=== PATIENT | male | born 1960 | race African-American/Black ===

== ENCOUNTER 2016-07-19 11:27 | Inpatient (IN) | payer OTHER ==
[2016-07-19 13:57] VITALS: BMI 21.4
[2016-07-19] MEDS ORDERED: P-EPHED 60MG/TRIPROLIDI 2.5MG TABLET PO PRN (16:56)
[2016-07-19] MEDS ORDERED: NICOTINE POLACRILEX 2 MG GUM BC PRN (16:56)
[2016-07-19] MEDS ORDERED: MAGNESIUM HYDROX 2400MG/30ML ORAL SUSPENSION 30 ML CUP PO PRN (16:56)
[2016-07-19] MEDS ORDERED: MENTHOL/PHENOL 1 EACH UD MM PRN (16:56)
[2016-07-19] MEDS ORDERED: ACETAMINOPHEN 325 MG TABLET (FP) PO PRN (16:56)
[2016-07-19] MEDS ORDERED: diphenhydrAMINE HCL 50 MG CAPSULE PO PRN (16:56)
[2016-07-19] MEDS ORDERED: LOPERAMIDE HCL 2 MG CAPSULE PO PRN (16:56)
[2016-07-19] MEDS ORDERED: MAGNESIUM CITRATE 300 ML BOTTLE PO PRN (16:56)
[2016-07-19] MEDS ORDERED: IBUPROFEN 400 MG TABLET (FP) PO PRN (16:56)
[2016-07-19] MEDS ORDERED: guaiFENesin/D-METHORPHAN HB 10 ML UNIT-DOSE CUPS PO PRN (16:56)
[2016-07-19] MEDS ORDERED: MAG HYDROX/AL HYDROX/SIMETH 30 ML UNIT-DOSE CUP PO PRN (16:56)
--- NOTE | 2016-07-19 16:56 | HP ---
COWS - Scale Resting Pulse: 0= [place] 80 or Below Sweatin=Flushed/Facial Moisture Restless Observation: 1= Difficult to Sit Still Pupil Size: 0= Normal to Room Light Bone or Joint Aches: 2= Severe Diffuse Aches Runny Nose/ Eye Tearin= Runny Nose/Eyes GI Upset > 30mins: 1= Stomach Cramp Tremor Observation: 2= Slight Tremor Visible Yawning Observation: 1= 1-2x During Session Anxiety or Irritability: 2=Irritable/Anxious Goose Flesh Skin: 0=Smooth Skin COWS Score: 13 Admission [facility] Chief Complaint: withdrawal sx Allergies/Adverse Reactions: Allergies Allergy/AdvReac Type Severity Reaction Status Date / Time No Known Allergies Allergy Verified 07/19/16 14:43 History of Present Illness: 56 years old male with long history of opioid nicotine dependence denies medical denies mental illness is admitted to detox Exam Limitations: No Limitations - Ebola screening Have you traveled outside of the country in the last 21 days: No Have you had contact with anyone from an Ebola affected area: No Have you been sick,other than usual withdrawal symptoms: No Do you have a fever: No - Review of Systems Constitutional: Chills, Loss of Appetite, Changes in sleep, Unintentional Wgt. Loss, Unexplained wgt Loss EENT: reports: No Symptoms Reported Respiratory: reports: No Symptoms reported Cardiac: reports: No Symptoms Reported GI: reports: Poor Appetite, Poor Fluid Intake, Indigestion, Abdominal cramping : reports: No Symptoms Reported Musculoskeletal: reports: Back Pain, Joint Pain, Muscle Pain, Neck Pain Integumentary: reports: No Symptoms Reported Neuro: reports: Tremors Endocrine: reports: No Symptoms Reported Hematology: reports: No Symptoms Reported Psychiatric: reports: Judgement Intact, Mood/Affect Appropiate, Orientated x3 Other Systems: Reviewed and Negative Patient History - Patient Medical History Hx Anemia: No Hx Asthma: No Hx Chronic Obstructive Pulmonary Disease (COPD): No Hx Cancer: No Hx Cardiac Disorders: No Hx Congestive Heart Failure: No Hx Hypertension: No Hx Hypercholesterolemia: No Hx Pacemaker: No HX Cerebrovascular Accident: No Hx Seizures: No Hx Dementia: No Hx Diabetes: No Hx Gastrointestinal Disorders: No Hx Liver Disease: No Hx Genitourinary Disorders: No Hx Sexually Transmitted Disorders: No Hx Renal Disease (ESRD): No Hx Thyroid Disease: No Hx Human Immunodeficiency Virus (HIV): No (NEGATIVE HX) Hx Hepatitis C: No Hx Depression: No Hx Suicide Attempt: No Hx Bipolar Disorder: No Hx Schizophrenia: No - Patient Surgical History Past Surgical History: Yes Hx Neurologic Surgery: No Hx Cataract Extraction: No Hx Cardiac Surgery: No Hx Lung Surgery: No Hx Breast Surgery: No Hx Breast Biopsy: No Hx Abdominal Surgery: No Hx Appendectomy: No Hx Cholecystectomy: No Hx Genitourinary Surgery: No Hx Orthopedic Surgery: Yes (right ankle in 1995) Anesthesia Reaction: No - PPD History Previous Implant?: Yes Documented Results: Negative w/proof Implanted On Prior R Admission?: Yes Date: 02/09/15 Results: 0 mm PPD to be Administered?: Yes - Smoking Cessation Smoking history: Current every day smoker Have you smoked in the past 12 months: Yes Aproximately how many cigarettes per day: 5 Cigars Per Day: 0 Hx Chewing Tobacco Use: No Initiated information on smoking cessation: Yes 'Breaking Loose' booklet given: 07/19/16 - Substance & Tx. History Hx Alcohol Use: No Hx Substance Use: Yes Substance Use Type: Opiates Hx Substance Use Treatment: Yes - Substances Abused Heroin Route: Inhalation Frequency: Daily Amount used: 3-4 bags Age of first use: 34 Date of Last Use: 07/18/16 Family Disease History - Family Disease History Family Disease History: Diabetes: Mother (HTN), Heart Disease: Mother, Other: Brother (DRUG ADDICTION) Admission Physical Exam BHS - Vital Signs Vital Signs: Vital Signs - 24 hr 07/19/16 13:56 Temperature 9702 F H Pulse Rate 61 Respiratory 20 Rate Blood Pressure 100/67 - Physical General Appearance: Yes: Appropriately Dressed, Mild Distress, Thin, Tremorous, Irritable, Sweating, Anxious HEENTM: Yes: Hearing grossly Normal, Normal ENT Inspection, Normocephalic, Normal Voice Respiratory: Yes: Chest Non-Tender, Lungs Clear, Normal Breath Sounds, No Respiratory Distress, No Accessory Muscle Use Neck: Yes: Supple, Trachea in good position Breast: Yes: Breasts Symetrical Cardiology: Yes: Regular Rhythm, S1, S2, Bradycardia Abdominal: Yes: Non Tender, Soft Genitourinary: Yes: Within Normal Limits Back: Yes: Normal Inspection Musculoskeletal: Yes: full range of Motion, Gait Steady, Back pain, Muscle Pain Extremities: Yes: Normal Inspection, Normal Range of Motion, Non-Tender, Tremors Neurological: Yes: Fully Oriented, Alert, Motor Strength 5/5, Normal Mood/Affect , Normal Response Integumentary: Yes: Warm Lymphatic: Yes: Within Normal Limits - Diagnostic (1) Nicotine dependence Current Visit: Yes Status: Acute Qualifiers: Nicotine product type: cigarettes Substance use status: in withdrawal Qualified Code(s): F17.213 - Nicotine dependence, cigarettes, with withdrawal (2) Opioid dependence with withdrawal Current Visit: Yes Status: Acute (3) Weight loss Current Visit: Yes Status: Acute Cleared for Admission [facility] - Detox or Rehab [facility] Level of Care: Medically Managed Detox Regimen/Protocol: Methadone [facility] Breath Alcohol Content Breath Alcohol Content: 0 Urine Drug Screen - Results Drug Screen Negative: No Urine Drug Screen Results: OPI-Opiates
[2016-07-19] MEDS ORDERED: METHADONE HCL 10 MG TABLET (FOR DETOX USE ONLY) PO ONE ×2 (17:15→23:00)
[2016-07-19] MEDS: diazePAM 5 MG TABLET PO PRN ×2 (17:41→23:06)
[2016-07-19 21:15] LABS: URINE APPEARANCE CLEAR; URINE BILIRUBIN NEGATIVE (NEGATIVE); URINE BLOOD NEGATIVE (NEGATIVE); URINE COLOR YELLOW; URINE GLUCOSE (UA) NEGATIVE (NEGATIVE); URINE KETONE NEGATIVE (NEGATIVE); URINE LEUK ESTERASE NEGATIVE (NEGATIVE); URINE NITRITE NEGATIVE (NEGATIVE); URINE PROTEIN NEGATIVE (NEGATIVE); URINE UROBILINOGEN NEGATIVE E.U./dl (0.2-1.0)
[2016-07-19] MEDS: THIAMINE HCL 100 MG TABLET (FP) PO SCH (23:03)
[2016-07-20] MEDS: diazePAM 5 MG TABLET PO PRN ×3 (06:08→22:23)
[2016-07-20 09:57] LABS: MCH 29.2 pg (25.7-33.7); MCHC 33.1 g/dl (32.0-35.9); MEAN CELL VOLUME 88.4 fl (80-96); MEAN PLT VOLUME 8.7 fl (7.5-11.1); PLATELET COUNT 208 K/MM3 (134-434); WHITE BLOOD COUNT 2.3 K/mm3 (4.0-10.0)
[2016-07-20] MEDS ORDERED: METHADONE HCL 10 MG TABLET (FOR DETOX USE ONLY) PO ONE (10:00)
[2016-07-20] MEDS: PRENATAL VITAMINS W/ FOLIC ACID TABLET (FP) PO SCH (10:24)
[2016-07-20] MEDS: NICOTINE 14 MG/24 HOURS TOPICAL PATCH TD SCH (10:24)
[2016-07-20 11:38] LABS: ANION GAP 7 (8-16); CALCIUM 9.1 mg/dL (8.5-10.1); CO2 33 mmol/L (21-32); COCKROFT - GAULT 104.51; CREATININE 0.8 mg/dL (0.7-1.3); GLUCOSE,RANDOM 66 mg/dL (74-106)
[2016-07-20 11:39] LABS: ALK PHOS 65 U/L (45-117); BILIRUBIN,TOTAL 0.8 mg/dL (0.2-1.0); SGOT/AST 24 U/L (15-37); SGPT/ALT 22 U/L (12-78)
--- NOTE | 2016-07-20 11:45 | EKG ---
Test Reason : Blood Pressure : / mmHG Vent. Rate : 051 BPM Atrial Rate : 051 BPM P-R Int : 216 ms QRS Dur : 094 ms QT Int : 470 ms P-R-T Axes : 052 -29 025 degrees QTc Int : 433 ms SINUS BRADYCARDIA WITH 1ST DEGREE A-V BLOCK OTHERWISE NORMAL ECG NO PREVIOUS ECGS AVAILABLE Confirmed by GLORIA GIL, NORBERTO ([id number]) on 07/20/2016 11:45:08 AM Referred By: Aquilino Manzo Confirmed By:NORBERTO CASTRO MD
--- NOTE | 2016-07-20 12:24 | PN ---
BHS COWS - Scale Resting Pulse: 0= [place] 80 or Below Sweatin=Flushed/Facial Moisture Restless Observation: 1= Difficult to Sit Still Pupil Size: 0= Normal to Room Light Bone or Joint Aches: 1= Mild Discomfort Runny Nose/ Eye Tearin= Runny Nose/Eyes GI Upset > 30mins: 2= Nausea/Diarrhea Tremor Observation of Outstretched Hands: 2= Slight Tremor Visible Yawning Observation: 1= 1-2x During Session Anxiety or Irritability: 2=Irritable/Anxious Goose Flesh Skin: 0=Smooth Skin COWS Score: 13 BHS Progress Note (SOAP) Subjective: Anxiety,tremors,sweating,interrupted sleep,restless Objective: 07/20/16 12:23 Vital Signs - 8 hr 07/20/16 07/20/16 06:24 10:00 Temperature 97.7 F Pulse Rate 62 67 Respiratory 18 18 Rate Blood Pressure 118/81 105/72 Laboratory Results - last 24 hr 07/19/16 07/20/16 07/20/16 20:52 06:00 06:00 WBC 2.3 L RBC 4.25 Hgb 12.4 Hct 37.5 MCV 88.4 MCHC 33.1 RDW 13.0 Plt Count 208 MPV 8.7 Sodium 141 Potassium 4.2 Chloride 101 Carbon Dioxide 33 H D Anion Gap 7 L BUN 17 Creatinine 0.8 Creat Clearance w eGFR > 60 Random Glucose 66 L D Calcium 9.1 Total Bilirubin 0.8 D AST 24 D ALT 22 Alkaline Phosphatase 65 Total Protein 7.0 Albumin 4.0 Urine Color Yellow Urine Appearance Clear Urine pH 6.0 Ur Specific [place] 1.020 Urine Protein Negative Urine Glucose (UA) Negative Urine Ketones Negative Urine Blood Negative Urine Nitrite Negative Urine Bilirubin Negative Urine Urobilinogen Negative Ur Leukocyte Esterase Negative RPR Titer T.pallidum Ab (A) 07/20/16 06:00 WBC RBC Hgb Hct MCV MCHC RDW Plt Count MPV Sodium Potassium Chloride Carbon Dioxide Anion Gap BUN Creatinine Creat Clearance w eGFR Random Glucose Calcium Total Bilirubin AST ALT Alkaline Phosphatase Total Protein Albumin Urine Color Urine Appearance Urine pH Ur Specific [place] Urine Protein Urine Glucose (UA) Urine Ketones Urine Blood Urine Nitrite Urine Bilirubin Urine Urobilinogen Ur Leukocyte Esterase RPR Titer Reactive 1:1 H T.pallidum Ab (A) Previously reactive labs noted Assessment: 07/20/16 12:23 Withdrawal sx. Plan: Continue detox
[2016-07-20] MEDS: THIAMINE HCL 100 MG TABLET (FP) PO SCH (22:21)
[2016-07-21] MEDS: diazePAM 5 MG TABLET PO PRN ×4 (05:28→23:11)
[2016-07-21] MEDS ORDERED: METHADONE HCL 5 MG TABLET (FOR DETOX USE ONLY) PO ONE (10:00)
[2016-07-21] MEDS: PRENATAL VITAMINS W/ FOLIC ACID TABLET (FP) PO SCH (10:27)
[2016-07-21] MEDS: NICOTINE 14 MG/24 HOURS TOPICAL PATCH TD SCH (10:27)
--- NOTE | 2016-07-21 11:45 | PN ---
[facility] CIWA - CIWA Score Nausea/Vomitin-No Nausea/No Vomiting Muscle Tremors: 4-Moderate,w/Arms Extend Anxiety: 4-Mod. Anxious/Guarded Agitation: 4-Moderately Restless Paroxysmal Sweats: 1-Minimal Palms Moist Orientation: 0-Oriented Tacttile Disturbances: 3-Moderate Itch/Numb/Burn Auditory Disturbances: 0-None Visual Disturbances: 0-None Headache: 0-None Present CIWA-Ar Total Score: 16 BHS Progress Note (SOAP) Subjective: ANXIETY,IRRITABILITY,FATIGUE. Objective: 07/21/16 11:43 Vital Signs Temperature 98.2 F 07/21/16 09:37 Pulse Rate 73 07/21/16 09:37 Respiratory Rate 18 07/21/16 09:37 Blood Pressure 114/76 07/21/16 09:37 O2 Sat by Pulse Oximetry (%) Laboratory Last Values WBC 2.3 K/mm3 (4.0-10.0) L 07/20/16 06:00 RBC 4.25 M/mm3 (4.00-5.60) 07/20/16 06:00 Hgb 12.4 GM/dL (11.7-16.9) 07/20/16 06:00 Hct 37.5 % (35.4-49) 07/20/16 06:00 MCV 88.4 fl (80-96) 07/20/16 06:00 MCHC 33.1 g/dl (32.0-35.9) 07/20/16 06:00 RDW 13.0 % (11.9-15.9) 07/20/16 06:00 Plt Count 208 K/MM3 (134-434) 07/20/16 06:00 MPV 8.7 fl (7.5-11.1) 07/20/16 06:00 Sodium 141 mmol/L (136-145) 07/20/16 06:00 Potassium 4.2 mmol/L (3.5-5.1) 07/20/16 06:00 Chloride 101 mmol/L (98-107) 07/20/16 06:00 Carbon Dioxide 33 mmol/L (21-32) H D 07/20/16 06:00 Anion Gap 7 (8-16) L 07/20/16 06:00 BUN 17 mg/dL (7-18) 07/20/16 06:00 Creatinine 0.8 mg/dL (0.7-1.3) 07/20/16 06:00 Creat Clearance w eGFR > 60 (>60) 07/20/16 06:00 Random Glucose 66 mg/dL (74-106) L D 07/20/16 06:00 Calcium 9.1 mg/dL (8.5-10.1) 07/20/16 06:00 Total Bilirubin 0.8 mg/dL (0.2-1.0) D 07/20/16 06:00 AST 24 U/L (15-37) D 07/20/16 06:00 ALT 22 U/L (12-78) 07/20/16 06:00 Alkaline Phosphatase 65 U/L (45-117) 07/20/16 06:00 Total Protein 7.0 g/dl (6.4-8.2) 07/20/16 06:00 Albumin 4.0 g/dl (3.4-5.0) 07/20/16 06:00 Urine Color Yellow 07/19/16 20:52 Urine Appearance Clear 07/19/16 20:52 Urine pH 6.0 (5.0-8.0) 07/19/16 20:52 Ur Specific [place] 1.020 (1.005-1.025) 07/19/16 20:52 Urine Protein Negative (NEGATIVE) 07/19/16 20:52 Urine Glucose (UA) Negative (NEGATIVE) 07/19/16 20:52 Urine Ketones Negative (NEGATIVE) 07/19/16 20:52 Urine Blood Negative (NEGATIVE) 07/19/16 20:52 Urine Nitrite Negative (NEGATIVE) 07/19/16 20:52 Urine Bilirubin Negative (NEGATIVE) 07/19/16 20:52 Urine Urobilinogen Negative E.U./dl (0.2-1.0) 07/19/16 20:52 Ur Leukocyte Esterase Negative (NEGATIVE) 07/19/16 20:52 RPR Titer Reactive 1:1 (NONREACTIVE) H 07/20/16 06:00 T.pallidum Ab (MHA) Previously reactive (NONREACTIVE) 07/20/16 06:00 LABS NOTED. Assessment: 07/21/16 11:44 WITHDRAWAL SX Plan: CONTINUE DETOX
[2016-07-21] MEDS: THIAMINE HCL 100 MG TABLET (FP) PO SCH (22:16)
[2016-07-22] MEDS: diazePAM 5 MG TABLET PO PRN ×3 (05:26→16:40)
[2016-07-22] MEDS ORDERED: METHADONE HCL 10 MG TABLET (FOR DETOX USE ONLY) PO ONE (10:00)
[2016-07-22] MEDS ORDERED: METHADONE HCL 5 MG TABLET (FOR DETOX USE ONLY) PO ONE (10:00)
[2016-07-22] MEDS: NICOTINE 14 MG/24 HOURS TOPICAL PATCH TD SCH (10:31)
[2016-07-22] MEDS: PRENATAL VITAMINS W/ FOLIC ACID TABLET (FP) PO SCH (10:31)
--- NOTE | 2016-07-22 11:06 | PN ---
BHS Progress Note (SOAP) Subjective: IRRITABILITY,AGITATIONS,FATIGUE. Objective: 07/22/16 11:05 Vital Signs Temperature 97.4 F L 07/22/16 09:15 Pulse Rate 71 07/22/16 09:15 Respiratory Rate 18 07/22/16 09:15 Blood Pressure 117/76 07/22/16 09:15 O2 Sat by Pulse Oximetry (%) Assessment: 07/22/16 11:05 WITHDRAWAL SX Plan: CONTINUE DETOX
[2016-07-22] MEDS: THIAMINE HCL 100 MG TABLET (FP) PO SCH (23:05)
[2016-07-23] MEDS ORDERED: METHADONE HCL 5 MG TABLET (FOR DETOX USE ONLY) PO ONE (06:00)
[2016-07-23 06:27] VITALS: BP 112/75; PULSE 66; TEMP 97.3
[2016-07-23] MEDS ORDERED: METHADONE HCL 10 MG TABLET (FOR DETOX USE ONLY) PO ONE (10:00)
--- NOTE | 2016-07-23 10:52 | DS ---
[facility] Detox Discharge Summary Admission Date: 07/19/16 Discharge Date: 07/23/16 - History Present History: Opioid Dependence Additional Comments: DETOX COMPLETED. PT DISCHARGED EARLIER TODAY. Pertinent Past History: WEIGHT LOSS - Physical Exam Results Vital Signs: Vital Signs Temperature 97.3 F L 07/23/16 06:27 Pulse Rate 66 07/23/16 06:27 Respiratory Rate 18 07/23/16 06:27 Blood Pressure 112/75 07/23/16 06:27 O2 Sat by Pulse Oximetry (%) Pertinent Admission Physical Exam Findings: WITHDRAWAL SX Laboratory Last Values WBC 2.3 K/mm3 (4.0-10.0) L 07/20/16 06:00 RBC 4.25 M/mm3 (4.00-5.60) 07/20/16 06:00 Hgb 12.4 GM/dL (11.7-16.9) 07/20/16 06:00 Hct 37.5 % (35.4-49) 07/20/16 06:00 MCV 88.4 fl (80-96) 07/20/16 06:00 MCHC 33.1 g/dl (32.0-35.9) 07/20/16 06:00 RDW 13.0 % (11.9-15.9) 07/20/16 06:00 Plt Count 208 K/MM3 (134-434) 07/20/16 06:00 MPV 8.7 fl (7.5-11.1) 07/20/16 06:00 Sodium 141 mmol/L (136-145) 07/20/16 06:00 Potassium 4.2 mmol/L (3.5-5.1) 07/20/16 06:00 Chloride 101 mmol/L (98-107) 07/20/16 06:00 Carbon Dioxide 33 mmol/L (21-32) H D 07/20/16 06:00 Anion Gap 7 (8-16) L 07/20/16 06:00 BUN 17 mg/dL (7-18) 07/20/16 06:00 Creatinine 0.8 mg/dL (0.7-1.3) 07/20/16 06:00 Creat Clearance w eGFR > 60 (>60) 07/20/16 06:00 Random Glucose 66 mg/dL (74-106) L D 07/20/16 06:00 Calcium 9.1 mg/dL (8.5-10.1) 07/20/16 06:00 Total Bilirubin 0.8 mg/dL (0.2-1.0) D 07/20/16 06:00 AST 24 U/L (15-37) D 07/20/16 06:00 ALT 22 U/L (12-78) 07/20/16 06:00 Alkaline Phosphatase 65 U/L (45-117) 07/20/16 06:00 Total Protein 7.0 g/dl (6.4-8.2) 07/20/16 06:00 Albumin 4.0 g/dl (3.4-5.0) 07/20/16 06:00 Urine Color Yellow 07/19/16 20:52 Urine Appearance Clear 07/19/16 20:52 Urine pH 6.0 (5.0-8.0) 07/19/16 20:52 Ur Specific [place] 1.020 (1.005-1.025) 07/19/16 20:52 Urine Protein Negative (NEGATIVE) 07/19/16 20:52 Urine Glucose (UA) Negative (NEGATIVE) 07/19/16 20:52 Urine Ketones Negative (NEGATIVE) 07/19/16 20:52 Urine Blood Negative (NEGATIVE) 07/19/16 20:52 Urine Nitrite Negative (NEGATIVE) 07/19/16 20:52 Urine Bilirubin Negative (NEGATIVE) 07/19/16 20:52 Urine Urobilinogen Negative E.U./dl (0.2-1.0) 07/19/16 20:52 Ur Leukocyte Esterase Negative (NEGATIVE) 07/19/16 20:52 RPR Titer Reactive 1:1 (NONREACTIVE) H 07/20/16 06:00 T.pallidum Ab (MHA) Previously reactive (NONREACTIVE) 07/20/16 06:00 - Treatment Hospital Course: Detox Protocol Followed, Detoxed Safely, Responded well, Discharged Condition Good - Medication Discharge Medications: Ambulatory Orders NK [No Known Home Medication] 10/23/13 - Diagnosis (1) Nicotine dependence Status: Acute Qualifiers: Nicotine product type: cigarettes Substance use status: in withdrawal Qualified Code(s): F17.213 - Nicotine dependence, cigarettes, with withdrawal (2) Opioid dependence with withdrawal Status: Acute (3) Weight loss Status: Acute - AMA Did Patient Leave Against Medical Advice: No
[2016-07-24] MEDS ORDERED: METHADONE HCL 5 MG TABLET (FOR DETOX USE ONLY) PO ONE (06:00)
== END 2016-07-23 07:15 | disposition home or self-care (01) | DRG 773 ==
LOC: YASAS 11:27 → Y3N 15:29
PROVIDERS: ADMIT Internal Medicine; ATTEND Internal Medicine
PROC: HZ2ZZZZ Detoxification Services for Substance Abuse Treatment (ICD-10-PCS; principal; 2016-07-19)
DX: F11.23 Opioid dependence with withdrawal (principal); F17.213 Nicotine dependence, cigarettes, with withdrawal; R00.1 Bradycardia, unspecified; Z87.898 Personal history of other specified conditions
CPT/HCPCS: 36415; 80053; 81003; 85027; 86593; 86780; 93005; 93010

== ENCOUNTER 2017-02-24 08:13 | Inpatient (IN) | payer OTHER ==
[2017-02-24 09:51] VITALS: BMI 21.5
--- NOTE | 2017-02-24 11:58 | HP ---
COWS - Scale Resting Pulse: 0= [place] 80 or Below Sweatin= Chills/Flushing Restless Observation: 3= Extraneous Movement Pupil Size: 0= Normal to Room Light Bone or Joint Aches: 4=Acute Joint/Muscle Pain Runny Nose/ Eye Tearin= Nasal Congestion GI Upset > 30mins: 1= Stomach Cramp Tremor Observation: 2= Slight Tremor Visible Yawning Observation: 1= 1-2x During Session Anxiety or Irritability: 2=Irritable/Anxious Goose Flesh Skin: 0=Smooth Skin COWS Score: 15 Admission ROS S - HPI Chief Complaint: WITHDRAWAL SX FROM HEROIN Allergies/Adverse Reactions: Allergies Allergy/AdvReac Type Severity Reaction Status Date / Time No Known Allergies Allergy Verified 02/24/17 09:58 Exam Limitations: No Limitations - Ebola screening Have you traveled outside of the country in the last 21 days: No (N) Have you had contact with anyone from an Ebola affected area: No Have you been sick,other than usual withdrawal symptoms: No Do you have a fever: No - Review of Systems Constitutional: Chills, Loss of Appetite, Night Sweats, Changes in sleep, Unintentional Wgt. Loss EENT: reports: Blurred Vision ("I LOSSED MY GLASSES".), Tearing, Nose Congestion , Dental Problems (UPPER DENTURES) Respiratory: reports: No Symptoms reported Cardiac: reports: Lightheadedness GI: reports: Constipated, Diarrhea, Nausea, Vomiting : reports: No Symptoms Reported Musculoskeletal: reports: Back Pain, Joint Pain, Muscle Pain Integumentary: reports: No Symptoms Reported Neuro: reports: Unsteady Gait, Dizziness Endocrine: reports: No Symptoms Reported Hematology: reports: No Symptoms Reported Psychiatric: reports: Orientated x3, Anxious, Depressed Other Systems: Reviewed and Negative Patient History - Patient Medical History Hx Anemia: No Hx Asthma: No Hx Chronic Obstructive Pulmonary Disease (COPD): No Hx Cancer: No Hx Cardiac Disorders: No Hx Congestive Heart Failure: No Hx Hypertension: No Hx Hypercholesterolemia: No Hx Pacemaker: No HX Cerebrovascular Accident: No Hx Seizures: No Hx Dementia: No Hx Diabetes: No Hx Gastrointestinal Disorders: No Hx Liver Disease: No Hx Genitourinary Disorders: No Hx Sexually Transmitted Disorders: No Hx Renal Disease (ESRD): No Hx Thyroid Disease: No Hx Human Immunodeficiency Virus (HIV): No (NEGATIVE HX) Hx Hepatitis C: No Hx Depression: Yes (NO CURRENT MED) Hx Suicide Attempt: No (DENIES) Hx Bipolar Disorder: No Hx Schizophrenia: No - Patient Surgical History Past Surgical History: Yes Hx Neurologic Surgery: No Hx Cataract Extraction: No Hx Cardiac Surgery: No Hx Lung Surgery: No Hx Breast Surgery: No Hx Breast Biopsy: No Hx Abdominal Surgery: No Hx Appendectomy: No Hx Cholecystectomy: No Hx Genitourinary Surgery: No Hx Orthopedic Surgery: Yes (right ankle in 1995) Anesthesia Reaction: No - PPD History Previous Implant?: Yes Documented Results: Negative w/proof Implanted On Prior [facility] Admission?: Yes Date: 07/21/16 Results: 0 mm PPD to be Administered?: No - Reproductive History Patient is a Female of Child Bearing Age (11 -55 yrs old): No (MALE) - Smoking Cessation Smoking history: Current every day smoker Have you smoked in the past 12 months: Yes Aproximately how many cigarettes per day: 7 Cigars Per Day: 0 Hx Chewing Tobacco Use: No Initiated information on smoking cessation: Yes 'Breaking Loose' booklet given: 02/24/17 - Substance & Tx. History Hx Alcohol Use: No (DENIES) Hx Substance Use: Yes (HEROIN) Substance Use Type: Heroin Hx Substance Use Treatment: Yes (LAST [place] AT [facility] DETOX) - Substances Abused Heroin Route: Inhalation Frequency: Daily Amount used: 7-8 bags Age of first use: 35 Date of Last Use: 02/24/17 Family Disease History - Family Disease History Family Disease History: Diabetes: Mother (HTN), Heart Disease: Mother, Other: Brother (DRUG ADDICTION) Admission Physical Exam S - Vital Signs Vital Signs: Vital Signs - 24 hr 02/24/17 09:48 Temperature 97 F L Pulse Rate 62 Respiratory 18 Rate Blood Pressure 107/71 - Physical General Appearance: Yes: Moderate Distress, Irritable, Anxious HEENTM: Yes: EOMI, Normocephalic, [place], Pharynx Normal Respiratory: Yes: Chest Non-Tender, Lungs Clear, Normal Breath Sounds, No Respiratory Distress Neck: Yes: No masses,lesions,Nodules, Supple, Trachea in good position Cardiology: Yes: Regular Rhythm, Regular Rate, S1, S2 Abdominal: Yes: Normal Bowel Sounds, Non Tender, Flat Genitourinary: Yes: Other Back: Yes: Within Normal Limits Musculoskeletal: Yes: full range of Motion, Gait Steady Extremities: Yes: Normal Range of Motion, Non-Tender Neurological: Yes: executive kitchen manager II-XII NML intact, Fully Oriented, Alert, Motor Strength 5/5 Integumentary: Yes: Dry, Warm Lymphatic: Yes: Within Normal Limits - Diagnostic (1) Nicotine dependence Current Visit: Yes Status: Acute Qualifiers: Nicotine product type: cigarettes Substance use status: in withdrawal Qualified Code(s): F17.213 - Nicotine dependence, cigarettes, with withdrawal (2) Opioid dependence with withdrawal Current Visit: Yes Status: Acute (3) Weight loss Current Visit: Yes Status: Acute Cleared for Admission [facility] - Detox or Rehab [facility] Level of Care: Medically Managed Detox Regimen/Protocol: Methadone [facility] Breath Alcohol Content Breath Alcohol Content: 0 Urine Drug Screen - Results Drug Screen Negative: No Urine Drug Screen Results: OPI-Opiates, OXY-Oxycodone
[2017-02-24] MEDS ORDERED: guaiFENesin/D-METHORPHAN HB 10 ML UNIT-DOSE CUPS PO PRN (12:02)
[2017-02-24] MEDS ORDERED: MAG HYDROX/AL HYDROX/SIMETH 30 ML UNIT-DOSE CUP PO PRN (12:02)
[2017-02-24] MEDS ORDERED: ACETAMINOPHEN 325 MG TABLET (FP) PO PRN (12:02)
[2017-02-24] MEDS ORDERED: IBUPROFEN 400 MG TABLET (FP) PO PRN (12:02)
[2017-02-24] MEDS ORDERED: P-EPHED 60MG/TRIPROLIDI 2.5MG TABLET PO PRN (12:02)
[2017-02-24] MEDS ORDERED: MENTHOL/PHENOL 1 EACH UD MM PRN (12:02)
[2017-02-24] MEDS ORDERED: NICOTINE POLACRILEX 2 MG GUM BUC PRN (12:02)
[2017-02-24] MEDS ORDERED: MAGNESIUM HYDROX 2400MG/30ML ORAL SUSPENSION 30 ML CUP PO PRN (12:02)
[2017-02-24] MEDS ORDERED: LOPERAMIDE HCL 2 MG CAPSULE PO PRN (12:02)
[2017-02-24] MEDS ORDERED: MAGNESIUM CITRATE 300 ML BOTTLE PO PRN (12:02)
[2017-02-24] MEDS ORDERED: METHADONE HCL 10 MG TABLET (FOR DETOX USE ONLY) PO ONE ×2 (12:22→23:00)
[2017-02-24 13:51] LABS: HEMATOCRIT 39.2 % (35.4-49); HEMOGLOBIN 12.6 GM/dL (11.7-16.9); MCH 28.6 pg (25.7-33.7); MEAN CELL VOLUME 89.4 fl (80-96); MEAN PLT VOLUME 8.7 fl (7.5-11.1); PLATELET COUNT 283 K/MM3 (134-434); RBC 4.39 M/mm3 (4.00-5.60); RDW 14.3 % (11.9-15.9); WHITE BLOOD COUNT 2.7 K/mm3 (4.0-10.0)
[2017-02-24 14:10] LABS: CHLORIDE 104 mmol/L (98-107); POTASSIUM 4.4 mmol/L (3.5-5.1); SODIUM 139 mmol/L (136-145)
[2017-02-24 14:15] LABS: ALBUMIN 3.8 g/dl (3.4-5.0); ALK PHOS 73 U/L (45-117); ANION GAP 4 (8-16); BILIRUBIN,TOTAL 0.7 mg/dL (0.2-1.0); BLOOD UREA NITROGEN 13 mg/dL (7-18); CALCIUM 8.7 mg/dL (8.5-10.1); CO2 31 mmol/L (21-32); CREATININE 0.7 mg/dL (0.7-1.3); GLUCOSE,RANDOM 125 mg/dL (74-106); SGOT/AST 12 U/L (15-37); SGPT/ALT 21 U/L (12-78); TOT PROT 6.8 g/dl (6.4-8.2)
[2017-02-24] MEDS ORDERED: METHADONE HCL 10 MG TABLET (FOR DETOX USE ONLY) ONE (14:26)
[2017-02-24] MEDS: NICOTINE 14 MG/24 HOURS TOPICAL PATCH TD SCH (14:34)
[2017-02-24] MEDS: diazePAM 5 MG TABLET PO PRN ×2 (14:34→22:13)
[2017-02-24 15:25] LABS: RPR REACTIVE 1:1 (NONREACTIVE)
[2017-02-24 15:26] LABS: TREPONEMA ANTIBODY PREVIOUSLY REACTIVE (NONREACTIVE)
--- NOTE | 2017-02-24 16:55 | CONSULT ---
[facility] Psychiatric Consult - Data Date of interview: 02/24/17 Admission source: [facility] Identifying data: Pt. is a 57 year old male, single, father of a 20 year old female, unemployed and currently homeless. This is [facility] Pt. admitted to for heroin dependence. Substance Abuse History: Following information confirmed with Mr. Tucker: Smoking Cessation. Smoking history: Current every day smoker. Have you smoked in the past 12 months: Yes. Aproximately how many cigarettes per day: 7. - Substance & Tx. History. Hx Alcohol Use: No (DENIES). Hx Substance Use: Yes ( HEROIN). Substance Use Type: Heroin. Hx Substance Use Treatment: Yes (LAST [place] AT [facility] DETOX). Heroin- Route: Inhalation Frequency: Daily. Amount used: 7-8 bags Age of first use: 35. Date of Last Use: 02/24/17 Medical History: Right ankle surgery in 1995. Psychiatric History: Pt. reports seeing a psychiatrist several times per week while in rehab for 8 months in 2004. Pt. stated he was prescribed paxil, wellbutrin, risperdal and trazodone during his tenure in rehab. States he took medications for 3-4 months then stopped because they were not working. Pt. currently requesting trazodone for insomnia. Stated he remembered the trazodone improving his sleep. Pt. denies h/o psychiatric hospitalizations and h/o suicide attempts. Pt. denies suicidal and homicidal ideation. Physical/Sexual Abuse/Trauma History: Denies. Additional Comment: Urine Drug Screen Results: OPI-Opiates, OXY-Oxycodone Mental Status Exam - Mental Status Exam Alert and Oriented to: Time, Place, Person Cognitive Function: Good Patient Appearance: Well Groomed Mood: Sad Affect: Mood Congruent Patient Behavior: Appropriate, Cooperative Speech Pattern: Clear, Appropriate Voice Loudness: Normal Thought Process: Goal Oriented Thought Disorder: Not Present Hallucinations: Denies Suicidal Ideation: Denies Homicidal Ideation: Denies Insight/Judgement: Poor Sleep: Poorly Appetite: Fair Muscle strength/Tone: Normal Gait/Station: Normal Psychiatric Findings - Problem List ([place] 1, 2,3) (1) Opioid dependence with withdrawal Current Visit: Yes Status: Acute (2) Nicotine dependence Current Visit: Yes Status: Chronic QualifierTitle: Nicotine product type: cigarettes Substance use status: in withdrawal Qualified Code(s): F17.213 - Nicotine dependence, cigarettes, with withdrawal (3) Insomnia Current Visit: Yes Status: Acute (4) Substance induced mood disorder Current Visit: Yes Status: Suspected - Initial Treatment Plan Initial Treatment Plan: Psychoeducation provided. Detoxification in progress. Trazodone 50mg qhs ordered for insomnia. Benefits and side effects (Priapism) discussed. Verbal consent given. Pt. reports favorable effect from taking trazodone in the past. Will continue to monitor.
[2017-02-24 20:58] LABS: URINE APPEARANCE CLEAR; URINE BILIRUBIN NEGATIVE (NEGATIVE); URINE BLOOD 1+ (NEGATIVE); URINE COLOR YELLOW; URINE GLUCOSE (UA) NEGATIVE (NEGATIVE); URINE KETONE NEGATIVE (NEGATIVE); URINE LEUK ESTERASE NEGATIVE (NEGATIVE); URINE NITRITE NEGATIVE (NEGATIVE); URINE PROTEIN NEGATIVE (NEGATIVE); URINE UROBILINOGEN NEGATIVE mg/dL (0.2-1.0)
[2017-02-24 21:39] LABS: URINE MUCUS RARE
[2017-02-24] MEDS: traZODone HCL 50 MG TABLET (FP) PO SCH (22:13)
[2017-02-24] MEDS: THIAMINE HCL 100 MG TABLET (FP) PO SCH (22:13)
--- NOTE | 2017-02-25 09:51 | EKG ---
Test Reason : Blood Pressure : / mmHG Vent. Rate : 058 BPM Atrial Rate : 058 BPM P-R Int : 222 ms QRS Dur : 090 ms QT Int : 466 ms P-R-T Axes : 050 -32 045 degrees QTc Int : 457 ms SINUS BRADYCARDIA WITH 1ST DEGREE A-V BLOCK LEFT AXIS DEVIATION ABNORMAL ECG WHEN COMPARED WITH ECG OF 24-FEB-2017 15:44, NO SIGNIFICANT CHANGE WAS FOUND Confirmed by ALTON TERRAZAS MD ([id number]) on 02/25/2017 9:50:52 AM Referred By: Confirmed By:ALTON TERRAZAS MD
--- NOTE | 2017-02-25 09:53 | EKG ---
Test Reason : Blood Pressure : / mmHG Vent. Rate : 053 BPM Atrial Rate : 053 BPM P-R Int : 206 ms QRS Dur : 092 ms QT Int : 456 ms P-R-T Axes : 038 -25 035 degrees QTc Int : 427 ms SINUS BRADYCARDIA OTHERWISE NORMAL ECG WHEN COMPARED WITH ECG OF 19-JUL-2016 16:44, NO SIGNIFICANT CHANGE WAS FOUND Confirmed by ALTON TERRAZAS MD ([id number]) on 02/25/2017 9:52:46 AM Referred By: Confirmed By:ALTON TERRAZAS MD
[2017-02-25] MEDS ORDERED: METHADONE HCL 10 MG TABLET (FOR DETOX USE ONLY) PO ONE (10:00)
[2017-02-25] MEDS: PRENATAL VITAMINS W/ FOLIC ACID TABLET (FP) PO SCH (10:10)
[2017-02-25] MEDS: NICOTINE 14 MG/24 HOURS TOPICAL PATCH TD SCH (10:10)
[2017-02-25] MEDS: diazePAM 5 MG TABLET PO PRN ×3 (10:10→23:23)
--- NOTE | 2017-02-25 11:52 | PN ---
BHS COWS - Scale Resting Pulse: 0= [place] 80 or Below Sweatin= Chills/Flushing Restless Observation: 1= Difficult to Sit Still Pupil Size: 0= Normal to Room Light Bone or Joint Aches: 2= Severe Diffuse Aches Runny Nose/ Eye Tearin= None GI Upset > 30mins: 0= None Tremor Observation of Outstretched Hands: 2= Slight Tremor Visible Yawning Observation: 1= 1-2x During Session Anxiety or Irritability: 2=Irritable/Anxious Goose Flesh Skin: 3=Piloerection COWS Score: 12 BHS Progress Note (SOAP) Subjective: Sweating, Tremors, Body Aches. Objective: PT. A & O X 3, OBSERVED AMBULATING ON UNIT. NO ACUTE DISTRESS. 02/25/17 11:53 Vital Signs Temperature 98.2 F 02/25/17 09:20 Pulse Rate 70 02/25/17 09:20 Respiratory Rate 18 02/25/17 09:20 Blood Pressure 110/70 02/25/17 09:20 O2 Sat by Pulse Oximetry (%) Laboratory Tests 02/24/17 02/24/17 02/24/17 12:15 12:15 12:15 WBC 2.7 L RBC 4.39 Hgb 12.6 Hct 39.2 MCV 89.4 MCH 28.6 MCHC 32.0 RDW 14.3 Plt Count 283 D MPV 8.7 Sodium 139 Potassium 4.4 Chloride 104 Carbon Dioxide 31 Anion Gap 4 L BUN 13 D Creatinine 0.7 Creat Clearance w eGFR > 60 Random Glucose 125 H D Calcium 8.7 Total Bilirubin 0.7 AST 12 L D ALT 21 Alkaline Phosphatase 73 Total Protein 6.8 Albumin 3.8 Urine Color Urine Appearance Urine pH Ur Specific [place] Urine Protein Urine Glucose (UA) Urine Ketones Urine Blood Urine Nitrite Urine Bilirubin Urine Urobilinogen Ur Leukocyte Esterase Urine WBC (Auto) Urine RBC (Auto) Urine Mucus RPR Titer Reactive 1:1 H T.pallidum Ab (A) Previously reactive 02/24/17 18:30 WBC RBC Hgb Hct MCV MCH MCHC RDW Plt Count MPV Sodium Potassium Chloride Carbon Dioxide Anion Gap BUN Creatinine Creat Clearance w eGFR Random Glucose Calcium Total Bilirubin AST ALT Alkaline Phosphatase Total Protein Albumin Urine Color Yellow Urine Appearance Clear Urine pH 6.0 Ur Specific [place] 1.020 Urine Protein Negative Urine Glucose (UA) Negative Urine Ketones Negative Urine Blood 1+ H Urine Nitrite Negative Urine Bilirubin Negative Urine Urobilinogen Negative Ur Leukocyte Esterase Negative Urine WBC (Auto) <1 Urine RBC (Auto) 1 Urine Mucus Rare RPR Titer T.pallidum Ab (MHA) LABS NOTED. PATIENT HAS HAD REACTIVE RPR RESULTS ON SEVERAL PREVIOUS ADMISSIONS. PATIENT REPORTS THAT HE COMPLETED FULL COURSE OF ANTIBIOTIC TREATMENT FOR SYPHILIS SEVERAL YEARS AGO. PATIENT HAS HAD LOW WBC VALUES ON PREVIOUS ADMISSIONS. 02/25/17 11:54 Assessment: 02/25/17 11:54 WITHDRAWAL SYMPTOMS LEUKOPENIA. 02/25/17 11:54 Plan: CONTINUE DETOX.
[2017-02-25] MEDS ORDERED: FLU VACCINE QUAD 60 MCG/0.5 ML (MDV 17-18) IM ONE (12:00)
[2017-02-25] MEDS: THIAMINE HCL 100 MG TABLET (FP) PO SCH (23:23)
[2017-02-25] MEDS: traZODone HCL 50 MG TABLET (FP) PO SCH (23:23)
[2017-02-26] MEDS: PRENATAL VITAMINS W/ FOLIC ACID TABLET (FP) PO SCH (09:58)
[2017-02-26] MEDS: NICOTINE 14 MG/24 HOURS TOPICAL PATCH TD SCH (09:58)
[2017-02-26] MEDS: diazePAM 5 MG TABLET PO PRN ×3 (09:58→22:18)
[2017-02-26] MEDS ORDERED: METHADONE HCL 5 MG TABLET (FOR DETOX USE ONLY) PO ONE (10:00)
--- NOTE | 2017-02-26 14:45 | PN ---
BHS COWS - Scale Resting Pulse: 0= [place] 80 or Below Sweatin= Chills/Flushing Restless Observation: 1= Difficult to Sit Still Pupil Size: 0= Normal to Room Light Bone or Joint Aches: 1= Mild Discomfort Runny Nose/ Eye Tearin= None GI Upset > 30mins: 1= Stomach Cramp Tremor Observation of Outstretched Hands: 2= Slight Tremor Visible Yawning Observation: 1= 1-2x During Session Anxiety or Irritability: 2=Irritable/Anxious Goose Flesh Skin: 3=Piloerection COWS Score: 12 BHS Progress Note (SOAP) Subjective: Interrupted Sleep, Sweating, Tremors, Fatigue. Objective: PT. A & O X 3, OBSERVED AMBULATING ON UNIT. NO ACUTE DISTRESS. 02/26/17 14:46 Vital Signs Temperature 98.1 F 02/26/17 13:52 Pulse Rate 71 02/26/17 13:52 Respiratory Rate 18 02/26/17 13:52 Blood Pressure 108/72 02/26/17 13:52 O2 Sat by Pulse Oximetry (%) Laboratory Tests 02/24/17 02/24/17 02/24/17 12:15 12:15 12:15 WBC 2.7 L RBC 4.39 Hgb 12.6 Hct 39.2 MCV 89.4 MCH 28.6 MCHC 32.0 RDW 14.3 Plt Count 283 D MPV 8.7 Sodium 139 Potassium 4.4 Chloride 104 Carbon Dioxide 31 Anion Gap 4 L BUN 13 D Creatinine 0.7 Creat Clearance w eGFR > 60 Random Glucose 125 H D Calcium 8.7 Total Bilirubin 0.7 AST 12 L D ALT 21 Alkaline Phosphatase 73 Total Protein 6.8 Albumin 3.8 Urine Color Urine Appearance Urine pH Ur Specific [place] Urine Protein Urine Glucose (UA) Urine Ketones Urine Blood Urine Nitrite Urine Bilirubin Urine Urobilinogen Ur Leukocyte Esterase Urine WBC (Auto) Urine RBC (Auto) Urine Mucus RPR Titer Reactive 1:1 H T.pallidum Ab (A) Previously reactive 02/24/17 18:30 WBC RBC Hgb Hct MCV MCH MCHC RDW Plt Count MPV Sodium Potassium Chloride Carbon Dioxide Anion Gap BUN Creatinine Creat Clearance w eGFR Random Glucose Calcium Total Bilirubin AST ALT Alkaline Phosphatase Total Protein Albumin Urine Color Yellow Urine Appearance Clear Urine pH 6.0 Ur Specific [place] 1.020 Urine Protein Negative Urine Glucose (UA) Negative Urine Ketones Negative Urine Blood 1+ H Urine Nitrite Negative Urine Bilirubin Negative Urine Urobilinogen Negative Ur Leukocyte Esterase Negative Urine WBC (Auto) <1 Urine RBC (Auto) 1 Urine Mucus Rare RPR Titer T.pallidum Ab (MHA) LABS NOTED. Assessment: 02/26/17 14:47 WITHDRAWAL SYMPTOMS. Plan: CONTINUE DETOX. INCREASE DAILY PO FLUID INTAKE.
[2017-02-26] MEDS: traZODone HCL 50 MG TABLET (FP) PO SCH (22:14)
[2017-02-26] MEDS: THIAMINE HCL 100 MG TABLET (FP) PO SCH (22:14)
[2017-02-27] MEDS: diazePAM 5 MG TABLET PO PRN ×2 (05:15→10:02)
[2017-02-27] MEDS ORDERED: METHADONE HCL 5 MG TABLET (FOR DETOX USE ONLY) PO ONE (10:00)
[2017-02-27] MEDS: NICOTINE 14 MG/24 HOURS TOPICAL PATCH TD SCH (10:02)
[2017-02-27] MEDS: PRENATAL VITAMINS W/ FOLIC ACID TABLET (FP) PO SCH (10:02)
--- NOTE | 2017-02-27 12:05 | PN ---
Psychiatric Progress Note Vital Signs: Vital Signs Period Temp Pulse Resp BP Sys/Levy Pulse Ox Last 24 Hr 98.1 F-98.3 F 64-77 18-18 93-113/62-76 Date of Session: 02/27/17 Chief Complaint:: Insomnia HPI: Mr Tucker was admitted on 02/24/17 for inpatient detoxification from heroin Current Medications: Active Medications Generic Name Dose Route Start Last Admin Trade Name Freq PRN Reason Stop Dose Admin Acetaminophen 650 mg 02/24/17 12:02 Tylenol - PO Q4H PRN FEVER OR PAIN Al Hydroxide/Mg Hydroxide 30 ml 02/24/17 12:02 Mylanta Oral Suspension - PO Q6H PRN DYSPEPSIA Eucalyptus/Menthol/Phenol/Sorbitol 1 each 02/24/17 12:02 Cepastat Lozenge - MM Q4H PRN SORE THROAT Guaifenesin 10 ml 02/24/17 12:02 Robitussin Dm - PO Q6H PRN COUGH Ibuprofen 400 mg 02/24/17 12:02 Motrin - PO Q6H PRN SEVERE PAIN Loperamide HCl 4 mg 02/24/17 12:02 Imodium - PO Q6H PRN DIARRHEA Magnesium Citrate 300 ml 02/24/17 12:02 Citroma - PO Q48H PRN CONSTIPATION Magnesium Hydroxide 30 ml 02/24/17 12:02 Milk Of Magnesia - PO DAILY PRN CONSTIPATION Methadone HCl 5 mg 03/01/17 06:00 Dolophine - PO 03/01/17 06:01 ONCE@0600 ONE Methadone HCl 10 mg 02/28/17 10:00 Dolophine - PO 02/28/17 10:01 ONCE ONE Nicotine 14 mg 02/24/17 12:15 02/27/17 10:02 Nicoderm Patch - TD Not Given DAILY ALOK Nicotine Polacrilex 2 mg 02/24/17 12:02 Nicorette Gum - BUC Q2H PRN NICOTINE REPLACEMENT RX Multivit/Folic Acid/Iron 1 tab 02/25/17 10:00 02/27/17 10:02 Vitamins (Sjr) - PO 1 tab DAILY ALOK Administration Pseudoephedrine/Triprolidine 1 combo 02/24/17 12:02 Actifed - PO TID PRN NASAL CONGESTION Thiamine HCl 100 mg 02/24/17 22:00 02/26/17 22:14 Vitamin B1 - PO 100 mg HS ALOK Administration Trazodone HCl 100 mg 02/27/17 22:00 Desyrel - PO HS [facility] Medication(s) Change(s): Increase Trazadone dosage to 100 mg po HS Current Side Effect: No Lab tests ordered: Yes Lab tests reviewed: Yes Provider note:: Patient reports experiencing difficulty to sleep. Told marketing underwriter that she has been sleeping poorly despite taking Trazadone 50 mg po HS. Requests an increase in med dosage Total face to face time:: 15 Mental Status Exam - Mental Status Exam Alert and Oriented to: Time, Place, Person Cognitive Function: Good Patient Appearance: Well Groomed Mood: Hopeful, Euthymic Affect: Appropriate Patient Behavior: Cooperative Speech Pattern: Clear, Artificially Ventilated Thought Process: Intact, Goal Oriented Thought Disorder: Not Present Hallucinations: Denies Suicidal Ideation: Denies Homicidal Ideation: Denies Insight/Judgement: Poor Sleep: Poorly Appetite: Fair Muscle strength/Tone: Normal Gait/Station: Normal Psychiatric Treatment Plan - Problem List (1) Opioid dependence with withdrawal Current Visit: Yes (2) Nicotine dependence Current Visit: Yes Qualifiers: Nicotine product type: cigarettes Substance use status: in withdrawal Qualified Code(s): F17.213 - Nicotine dependence, cigarettes, with withdrawal (3) Substance induced mood disorder Current Visit: Yes Initial treatment plan: 1) Discontinue Trazadone 50 mg po HS. 2) Start Trazadone 100 mg po HS. 3) Monitor progress
--- NOTE | 2017-02-27 14:49 | PN ---
BHS Progress Note (SOAP) Subjective: Interrupted sleep, anxious, sweating, nausea Objective: 02/27/17 14:45 Last Vital Signs Temp Pulse Resp BP Pulse Ox 98.3 F 71 18 122/83 02/27/17 13:21 02/27/17 13:21 02/27/17 13:21 02/27/17 13:21 Laboratory Tests 02/24/17 02/24/17 02/24/17 12:15 12:15 12:15 WBC 2.7 L RBC 4.39 Hgb 12.6 Hct 39.2 MCV 89.4 MCH 28.6 MCHC 32.0 RDW 14.3 Plt Count 283 D MPV 8.7 Sodium 139 Potassium 4.4 Chloride 104 Carbon Dioxide 31 Anion Gap 4 L BUN 13 D Creatinine 0.7 Creat Clearance w eGFR > 60 Random Glucose 125 H D Calcium 8.7 Total Bilirubin 0.7 AST 12 L D ALT 21 Alkaline Phosphatase 73 Total Protein 6.8 Albumin 3.8 Urine Color Urine Appearance Urine pH Ur Specific [place] Urine Protein Urine Glucose (UA) Urine Ketones Urine Blood Urine Nitrite Urine Bilirubin Urine Urobilinogen Ur Leukocyte Esterase Urine WBC (Auto) Urine RBC (Auto) Urine Mucus RPR Titer Reactive 1:1 H T.pallidum Ab (MHA) Previously reactive 02/24/17 18:30 WBC RBC Hgb Hct MCV MCH MCHC RDW Plt Count MPV Sodium Potassium Chloride Carbon Dioxide Anion Gap BUN Creatinine Creat Clearance w eGFR Random Glucose Calcium Total Bilirubin AST ALT Alkaline Phosphatase Total Protein Albumin Urine Color Yellow Urine Appearance Clear Urine pH 6.0 Ur Specific [place] 1.020 Urine Protein Negative Urine Glucose (UA) Negative Urine Ketones Negative Urine Blood 1+ H Urine Nitrite Negative Urine Bilirubin Negative Urine Urobilinogen Negative Ur Leukocyte Esterase Negative Urine WBC (Auto) <1 Urine RBC (Auto) 1 Urine Mucus Rare RPR Titer T.pallidum Ab (MHA) Labs noted: serum glucose 125mg/dl, UA shows 1+ blood Assessment: 02/27/17 14:46 Withdrawal symptoms Noted with hyperglycemia and microscopic hematuria Plan: Continue detox Hyperglycemia: repeat fasting glucose, send HbA1c Microscopic hematuria: encouraged to drink lots of water, repeat UA
[2017-02-27] MEDS: traZODone HCL 50 MG TABLET (FP) PO SCH (22:10)
[2017-02-27] MEDS: THIAMINE HCL 100 MG TABLET (FP) PO SCH (22:10)
[2017-02-28] MEDS: PRENATAL VITAMINS W/ FOLIC ACID TABLET (FP) PO SCH (09:44)
[2017-02-28] MEDS: NICOTINE 14 MG/24 HOURS TOPICAL PATCH TD SCH (09:44)
[2017-02-28] MEDS ORDERED: METHADONE HCL 10 MG TABLET (FOR DETOX USE ONLY) PO ONE (10:00)
[2017-02-28 12:04] LABS: URINE APPEARANCE CLEAR; URINE BILIRUBIN NEGATIVE (NEGATIVE); URINE BLOOD NEGATIVE (NEGATIVE); URINE COLOR LTYELLOW; URINE GLUCOSE (UA) NEGATIVE (NEGATIVE); URINE KETONE NEGATIVE (NEGATIVE); URINE LEUK ESTERASE NEGATIVE (NEGATIVE); URINE NITRITE NEGATIVE (NEGATIVE); URINE PROTEIN NEGATIVE (NEGATIVE); URINE UROBILINOGEN NEGATIVE mg/dL (0.2-1.0)
--- NOTE | 2017-02-28 13:49 | PN ---
BHS Progress Note (SOAP) Subjective: ANXIETY,IRRITABILITY,SWEATS,FATIGUE. Objective: 02/28/17 13:49 Vital Signs Temperature 97.2 F L 02/28/17 06:28 Pulse Rate 72 02/28/17 09:30 Respiratory Rate 18 02/28/17 09:30 Blood Pressure 101/70 02/28/17 09:30 O2 Sat by Pulse Oximetry (%) Laboratory Last Values WBC 2.7 K/mm3 (4.0-10.0) L 02/24/17 12:15 RBC 4.39 M/mm3 (4.00-5.60) 02/24/17 12:15 Hgb 12.6 GM/dL (11.7-16.9) 02/24/17 12:15 Hct 39.2 % (35.4-49) 02/24/17 12:15 MCV 89.4 fl (80-96) 02/24/17 12:15 MCH 28.6 pg (25.7-33.7) 02/24/17 12:15 MCHC 32.0 g/dl (32.0-35.9) 02/24/17 12:15 RDW 14.3 % (11.9-15.9) 02/24/17 12:15 Plt Count 283 K/MM3 (134-434) D 02/24/17 12:15 MPV 8.7 fl (7.5-11.1) 02/24/17 12:15 Sodium 139 mmol/L (136-145) 02/24/17 12:15 Potassium 4.4 mmol/L (3.5-5.1) 02/24/17 12:15 Chloride 104 mmol/L (98-107) 02/24/17 12:15 Carbon Dioxide 31 mmol/L (21-32) 02/24/17 12:15 Anion Gap 4 (8-16) L 02/24/17 12:15 BUN 13 mg/dL (7-18) D 02/24/17 12:15 Creatinine 0.7 mg/dL (0.7-1.3) 02/24/17 12:15 Creat Clearance w eGFR > 60 (>60) 02/24/17 12:15 Random Glucose 125 mg/dL (74-106) H D 02/24/17 12:15 Fasting Glucose 94 mg/dL (70-105) 02/28/17 07:50 Hemoglobin A1c % 6.0 % (4.8-6.0) 02/28/17 07:50 Calcium 8.7 mg/dL (8.5-10.1) 02/24/17 12:15 Total Bilirubin 0.7 mg/dL (0.2-1.0) 02/24/17 12:15 AST 12 U/L (15-37) L D 02/24/17 12:15 ALT 21 U/L (12-78) 02/24/17 12:15 Alkaline Phosphatase 73 U/L (45-117) 02/24/17 12:15 Total Protein 6.8 g/dl (6.4-8.2) 02/24/17 12:15 Albumin 3.8 g/dl (3.4-5.0) 02/24/17 12:15 Urine Color Ltyellow 02/28/17 07:50 Urine Appearance Clear 02/28/17 07:50 Urine pH 6.0 (5.0-8.0) 02/28/17 07:50 Ur Specific [place] 1.015 (1.001-1.035) 02/28/17 07:50 Urine Protein Negative (NEGATIVE) 02/28/17 07:50 Urine Glucose (UA) Negative (NEGATIVE) 02/28/17 07:50 Urine Ketones Negative (NEGATIVE) 02/28/17 07:50 Urine Blood Negative (NEGATIVE) 02/28/17 07:50 Urine Nitrite Negative (NEGATIVE) 02/28/17 07:50 Urine Bilirubin Negative (NEGATIVE) 02/28/17 07:50 Urine Urobilinogen Negative mg/dL (0.2-1.0) 02/28/17 07:50 Ur Leukocyte Esterase Negative (NEGATIVE) 02/24/17 18:30 Urine WBC (Auto) <1 /hpf (3-5) 02/24/17 18:30 Urine RBC (Auto) 1 /hpf (0-3) 02/24/17 18:30 Urine Mucus Rare 02/24/17 18:30 RPR Titer Reactive 1:1 (NONREACTIVE) H 02/24/17 12:15 T.pallidum Ab (MHA) Previously reactive (NONREACTIVE) 02/24/17 12:15 Assessment: 02/28/17 13:49 WITHDRAWAL SX Plan: CONTINUE DETOX
[2017-02-28] MEDS ORDERED: hydrOXYzine PAMOATE 50 MG CAPSULE (FP) PO PRN (16:50)
[2017-02-28] MEDS: traZODone HCL 50 MG TABLET (FP) PO SCH (22:06)
[2017-02-28] MEDS: THIAMINE HCL 100 MG TABLET (FP) PO SCH (22:06)
[2017-03-01] MEDS ORDERED: METHADONE HCL 5 MG TABLET (FOR DETOX USE ONLY) PO ONE (06:00)
[2017-03-01] MEDS: NICOTINE 14 MG/24 HOURS TOPICAL PATCH TD SCH (09:35)
[2017-03-01] MEDS: PRENATAL VITAMINS W/ FOLIC ACID TABLET (FP) PO SCH (09:35)
[2017-03-01 09:49] VITALS: BP 102/64; PULSE 85; TEMP 98.8
--- NOTE | 2017-03-01 10:27 | DS ---
[facility] Detox Discharge Summary Admission Date: 02/24/17 Discharge Date: 03/01/17 - History Present History: Opioid Dependence Additional Comments: DETOX COMPLETED. ALERT O X 3. F/U WITH REHAB REFERRAL DIRECTED. Pertinent Past History: WEIGHT LOSS - Physical Exam Results Vital Signs: Vital Signs Temperature 98.8 F 03/01/17 09:48 Pulse Rate 85 03/01/17 09:48 Respiratory Rate 19 03/01/17 09:48 Blood Pressure 102/64 03/01/17 09:48 O2 Sat by Pulse Oximetry (%) Pertinent Admission Physical Exam Findings: WITHDRAWAL SX Laboratory Last Values WBC 2.7 K/mm3 (4.0-10.0) L 02/24/17 12:15 RBC 4.39 M/mm3 (4.00-5.60) 02/24/17 12:15 Hgb 12.6 GM/dL (11.7-16.9) 02/24/17 12:15 Hct 39.2 % (35.4-49) 02/24/17 12:15 MCV 89.4 fl (80-96) 02/24/17 12:15 MCH 28.6 pg (25.7-33.7) 02/24/17 12:15 MCHC 32.0 g/dl (32.0-35.9) 02/24/17 12:15 RDW 14.3 % (11.9-15.9) 02/24/17 12:15 Plt Count 283 K/MM3 (134-434) D 02/24/17 12:15 MPV 8.7 fl (7.5-11.1) 02/24/17 12:15 Sodium 139 mmol/L (136-145) 02/24/17 12:15 Potassium 4.4 mmol/L (3.5-5.1) 02/24/17 12:15 Chloride 104 mmol/L (98-107) 02/24/17 12:15 Carbon Dioxide 31 mmol/L (21-32) 02/24/17 12:15 Anion Gap 4 (8-16) L 02/24/17 12:15 BUN 13 mg/dL (7-18) D 02/24/17 12:15 Creatinine 0.7 mg/dL (0.7-1.3) 02/24/17 12:15 Creat Clearance w eGFR > 60 (>60) 02/24/17 12:15 Random Glucose 125 mg/dL (74-106) H D 02/24/17 12:15 Fasting Glucose 94 mg/dL (70-105) 02/28/17 07:50 Hemoglobin A1c % 6.0 % (4.8-6.0) 02/28/17 07:50 Calcium 8.7 mg/dL (8.5-10.1) 02/24/17 12:15 Total Bilirubin 0.7 mg/dL (0.2-1.0) 02/24/17 12:15 AST 12 U/L (15-37) L D 02/24/17 12:15 ALT 21 U/L (12-78) 02/24/17 12:15 Alkaline Phosphatase 73 U/L (45-117) 02/24/17 12:15 Total Protein 6.8 g/dl (6.4-8.2) 02/24/17 12:15 Albumin 3.8 g/dl (3.4-5.0) 02/24/17 12:15 Urine Color Ltyellow 02/28/17 07:50 Urine Appearance Clear 02/28/17 07:50 Urine pH 6.0 (5.0-8.0) 02/28/17 07:50 Ur Specific [place] 1.015 (1.001-1.035) 02/28/17 07:50 Urine Protein Negative (NEGATIVE) 02/28/17 07:50 Urine Glucose (UA) Negative (NEGATIVE) 02/28/17 07:50 Urine Ketones Negative (NEGATIVE) 02/28/17 07:50 Urine Blood Negative (NEGATIVE) 02/28/17 07:50 Urine Nitrite Negative (NEGATIVE) 02/28/17 07:50 Urine Bilirubin Negative (NEGATIVE) 02/28/17 07:50 Urine Urobilinogen Negative mg/dL (0.2-1.0) 02/28/17 07:50 Ur Leukocyte Esterase Negative (NEGATIVE) 02/28/17 07:50 Urine WBC (Auto) <1 /hpf (3-5) 02/24/17 18:30 Urine RBC (Auto) 1 /hpf (0-3) 02/24/17 18:30 Urine Mucus Rare 02/24/17 18:30 RPR Titer Reactive 1:1 (NONREACTIVE) H 02/24/17 12:15 T.pallidum Ab (A) Previously reactive (NONREACTIVE) 02/24/17 12:15 - Treatment Hospital Course: Detox Protocol Followed, Detoxed Safely, Responded well, Discharged Condition Good - Medication Discharge Medications: Ambulatory Orders NK [No Known Home Medication] 10/23/13 - Diagnosis (1) Nicotine dependence Current Visit: Yes Status: Acute Qualifiers: Nicotine product type: cigarettes Substance use status: in withdrawal Qualified Code(s): F17.213 - Nicotine dependence, cigarettes, with withdrawal (2) Opioid dependence with withdrawal Current Visit: Yes Status: Acute (3) Weight loss Current Visit: Yes Status: Acute - AMA Did Patient Leave Against Medical Advice: No
== END 2017-03-01 14:00 | disposition home or self-care (01) | DRG 773 ==
LOC: YASAS 08:13 → Y3N 12:17
PROVIDERS: ADMIT Internal Medicine; ATTEND Internal Medicine
PROC: HZ2ZZZZ Detoxification Services for Substance Abuse Treatment (ICD-10-PCS; principal; 2017-02-23)
DX: F11.23 Opioid dependence with withdrawal (principal); F17.213 Nicotine dependence, cigarettes, with withdrawal; F19.24 Other psychoactive substance dependence with psychoactive substance-induced mood disorder; D72.829 Elevated white blood cell count, unspecified; D72.819 Decreased white blood cell count, unspecified; G47.00 Insomnia, unspecified; R31.29 Other microscopic hematuria; R73.9 Hyperglycemia, unspecified; Z87.898 Personal history of other specified conditions
CPT/HCPCS: 36415; 80053; 81003; 81015; 82947; 83036; 85027; 86593; 86780; 93005; 93010

== ENCOUNTER 2018-06-26 08:13 | Inpatient (IN) | payer OTHER ==
[2018-06-26 08:28] VITALS: BMI 21.7
--- NOTE | 2018-06-26 09:04 | HP ---
COWS - Scale Resting Pulse: 0= [place] 80 or Below Sweatin= Chills/Flushing Restless Observation: 1= Difficult to Sit Still Pupil Size: 1= Pupils >than Normal Bone or Joint Aches: 2= Severe Diffuse Aches Runny Nose/ Eye Tearin= Runny Nose/Eyes GI Upset > 30mins: 2= Nausea/Diarrhea Tremor Observation: 2= Slight Tremor Visible Yawning Observation: 2= >3x During Session Anxiety or Irritability: 2=Irritable/Anxious Goose Flesh Skin: 0=Smooth Skin COWS Score: 15 CIWA Score - Admission Criteria [facility] Guidelines: Admission for Medically Managed Detox: Requires at least one of the followin. CIWA greater than 12 2. Seizures within the past 24 hours 3. Delirium tremens within the past 24 hours 4. Hallucinations within the past 24 hours 5. Acute intervention needed for co occurring medical disorder 6. Acute intervention needed for co occurring psychiatric disorder 7. Severe withdrawal that cannot be handled at a lower level of care (continued vomiting, continued diarrhea, abnormal vital signs) requiring intravenous medication and/or fluids 8. Admission ROS S - HPI Chief Complaint: i need help to stop using heroin Allergies/Adverse Reactions: Allergies Allergy/AdvReac Type Severity Reaction Status Date / Time No Known Allergies Allergy Verified 06/26/18 08:21 History of Present Illness: this 58 years old male with heroin dependence seeking detox,withdrawal symptom, had previous admission in detox,last detox [facility] 02/24/17 to 03/01/17 nicotine dependence 7 cigarette/day,does not need nicotine replacement weight loss longest sobriety 5 and half year plan to go to rehab after detox Exam Limitations: No Limitations - Ebola screening Have you traveled outside of the country in the last 21 days: No Have you had contact with anyone from an Ebola affected area: No Do you have a fever: No - Review of Systems Constitutional: Chills, Loss of Appetite, Malaise, Night Sweats, Changes in sleep, Unintentional Wgt. Loss EENT: reports: Tearing, Nose Congestion Respiratory: reports: No Symptoms reported Cardiac: reports: No Symptoms Reported GI: reports: Nausea, Poor Appetite, Vomiting : reports: No Symptoms Reported Musculoskeletal: reports: Back Pain, Muscle Pain Integumentary: reports: Dryness Endocrine: reports: No Symptoms Reported Hematology: reports: No Symptoms Reported Psychiatric: reports: No Sypmtoms Reported, Judgement Intact, Mood/Affect Appropiate, Orientated x3 Other Systems: Reviewed and Negative Patient History - Patient Medical History Hx Anemia: No Hx Asthma: No Hx Chronic Obstructive Pulmonary Disease (COPD): No Hx Cancer: No Hx Cardiac Disorders: No Hx Congestive Heart Failure: No Hx Hypertension: No Hx Hypercholesterolemia: No Hx Pacemaker: No HX Cerebrovascular Accident: No Hx Seizures: No Hx Dementia: No Hx Diabetes: No Hx Gastrointestinal Disorders: No Hx Liver Disease: No Hx Genitourinary Disorders: No Hx Sexually Transmitted Disorders: No Hx Renal Disease (ESRD): No Hx Thyroid Disease: No Hx Human Immunodeficiency Virus (HIV): No (NEGATIVE HX last 02/14 ) Hx Hepatitis C: No Hx Depression: Yes (no medication) Hx Suicide Attempt: No Hx Bipolar Disorder: No Hx Schizophrenia: No Other Medical History: no suicidal,no homicidal - Patient Surgical History Past Surgical History: Yes Hx Neurologic Surgery: No Hx Cataract Extraction: No Hx Cardiac Surgery: No Hx Lung Surgery: No Hx Breast Surgery: No Hx Breast Biopsy: No Hx Abdominal Surgery: No Hx Appendectomy: No Hx Cholecystectomy: No Hx Genitourinary Surgery: No Hx Section: No Hx Orthopedic Surgery: Yes (right ankle in 1995) Anesthesia Reaction: No - PPD History Previous Implant?: Yes Documented Results: Negative w/o proof Implanted On Prior [facility] Admission?: Yes Date: 07/21/16 Results: 0 mm PPD to be Administered?: Yes - Smoking Cessation Smoking history: Current every day smoker Have you smoked in the past 12 months: Yes Aproximately how many cigarettes per day: 7 Cigars Per Day: 0 Hx Chewing Tobacco Use: No Initiated information on smoking cessation: Yes 'Breaking Loose' booklet given: 06/26/18 - Substance & Tx. History Hx Alcohol Use: No Hx Substance Use: Yes Substance Use Type: Heroin Hx Substance Use Treatment: Yes ([facility] 02/24/17 to 03/01/17) - Substances abused Heroin Substance route: Inhalation Frequency: Daily Amount used: 6 bags Age of first use: 35 Date of last use: 06/26/18 Family Disease History - Family Disease History Family Disease History: Diabetes: Mother (HTN), Heart Disease: Mother, Other: Brother (DRUG ADDICTION,SOBER) Admission Physical Exam BHS - Vital Signs Vital Signs: Vital Signs - 24 hr 06/26/18 08:23 Temperature 98 F Pulse Rate 69 Respiratory 18 Rate Blood Pressure 110/75 - Physical General Appearance: Yes: Moderate Distress, Tremorous, Irritable, Sweating, Anxious HEENTM: Yes: Normal ENT Inspection, [place], Pharynx Normal Respiratory: Yes: Lungs Clear, Normal Breath Sounds, No Respiratory Distress Neck: Yes: Within Normal Limits, Supple, Trachea in good position Breast: Yes: Within Normal Limits Cardiology: Yes: Within Normal Limits, Regular Rhythm, Regular Rate, S1, S2 Abdominal: Yes: Within Normal Limits, Normal Bowel Sounds, Non Tender, Flat, Soft Genitourinary: Yes: Within Normal Limits Back: Yes: Muscle Spasm Musculoskeletal: Yes: Back pain, Joint Stiffness, Muscle Pain Extremities: Yes: Within Normal Limits, Normal Range of Motion, Tremors Integumentary: Yes: Dry Lymphatic: Yes: Within Normal Limits - Diagnostic (1) Opioid dependence with withdrawal Current Visit: No Status: Acute (2) Nicotine dependence Current Visit: No Status: Acute Qualifiers: Nicotine product type: cigarettes Substance use status: in withdrawal Qualified Code(s): F17.213 - Nicotine dependence, cigarettes, with withdrawal (3) Weight loss Current Visit: No Status: Acute (4) Dehydration Current Visit: Yes Status: Acute (5) History of fracture of right ankle Current Visit: Yes Status: Acute Cleared for Admission [facility] - Detox or Rehab [facility] Level of Care: Medically Managed Detox Regimen/Protocol: Methadone Inpatient Rehab Admission - Rehab Decision to Admit Inpatient rehab admission?: No
[2018-06-26] MEDS ORDERED: MAG HYDROX/AL HYDROX/SIMETH 30 ML UNIT-DOSE CUP PO PRN (09:12)
[2018-06-26] MEDS ORDERED: MAGNESIUM CITRATE 300 ML BOTTLE PO PRN (09:12)
[2018-06-26] MEDS ORDERED: MELATONIN 5 MG TABLETS PO PRN (09:12)
[2018-06-26] MEDS ORDERED: IBUPROFEN 400 MG TABLET (FP) PO PRN (09:12)
[2018-06-26] MEDS ORDERED: cloNIDine HCL 0.1 MG TABLET PO PRN (09:12)
[2018-06-26] MEDS ORDERED: ACETAMINOPHEN 325 MG TABLET (FP) PO PRN ×2 (09:12)
[2018-06-26] MEDS ORDERED: MENTHOL/PHENOL 1 EACH UD MM PRN (09:12)
[2018-06-26] MEDS ORDERED: METHOCARBAMOL 500 MG TABLET PO PRN (09:12)
[2018-06-26] MEDS ORDERED: BISMUTH SUBSALICYLATE 524 MG/30 ML UD PO PRN (09:12)
[2018-06-26] MEDS ORDERED: hydrOXYzine PAMOATE 25 MG CAPSULE (FP) PO PRN (09:12)
[2018-06-26] MEDS ORDERED: MAGNESIUM HYDROX 2400MG/30ML ORAL SUSPENSION 30 ML CUP PO PRN (09:12)
[2018-06-26] MEDS ORDERED: METHADONE HCL 10 MG TABLET (FOR DETOX USE ONLY) PO ONE ×2 (10:00→23:00)
[2018-06-26] MEDS: PRENATAL VITAMINS W/ FOLIC ACID TABLET (FP) PO SCH (10:39)
[2018-06-26] MEDS: diazePAM 5 MG TABLET PO PRN ×3 (10:39→23:07)
[2018-06-26 12:32] LABS: HEMATOCRIT 37.1 % (35.4-49); HEMOGLOBIN 12.7 GM/dL (11.7-16.9); MCH 30.8 pg (25.7-33.7); MCHC 34.4 g/dl (32.0-35.9); MEAN CELL VOLUME 89.7 fl (80-96); MEAN PLT VOLUME 8.9 fl (7.5-11.1); PLATELET COUNT 215 K/MM3 (134-434); RBC 4.14 M/mm3 (4.00-5.60); RDW 13.4 % (11.9-15.9); WHITE BLOOD COUNT 2.9 K/mm3 (4.0-10.0)
[2018-06-26 12:35] LABS: RPR REACTIVE 1:1 (NONREACTIVE)
[2018-06-26 12:36] LABS: TREPONEMA ANTIBODY PREVIOUSLY REACTIVE (NONREACTIVE)
[2018-06-26 12:52] LABS: ALBUMIN 3.8 g/dl (3.4-5.0); ALK PHOS 69 U/L (45-117); ANION GAP 2 MMOL/L (8-16); BILIRUBIN,TOTAL 0.5 mg/dL (0.2-1); BLOOD UREA NITROGEN 16 mg/dL (7-18); CALCIUM 8.9 mg/dL (8.5-10.1); CHLORIDE 103 mmol/L (98-107); CO2 32 mmol/L (21-32); CREATININE 0.6 mg/dL (0.55-1.3); GLUCOSE,RANDOM 87 mg/dL (74-106); POTASSIUM 4.6 mmol/L (3.5-5.1); SGOT/AST 18 U/L (15-37); SGPT/ALT 26 U/L (13-61); SODIUM 137 mmol/L (136-145); TOT PROT 6.8 g/dl (6.4-8.2)
[2018-06-26 16:21] LABS: PH,URINE 6.5 (5.0-8.0); URINE APPEARANCE CLEAR; URINE BILIRUBIN NEGATIVE (NEGATIVE); URINE COLOR YELLOW; URINE GLUCOSE (UA) NEGATIVE (NEGATIVE); URINE KETONE NEGATIVE (NEGATIVE); URINE LEUK ESTERASE NEGATIVE (NEGATIVE); URINE NITRITE NEGATIVE (NEGATIVE); URINE PROTEIN NEGATIVE (NEGATIVE); URINE UROBILINOGEN 0.2 mg/dL (0.2-1.0)
[2018-06-26] MEDS: THIAMINE HCL 100 MG TABLET (FP) PO SCH (23:07)
[2018-06-27] MEDS: diazePAM 5 MG TABLET PO PRN ×4 (06:19→22:12)
[2018-06-27] MEDS: PRENATAL VITAMINS W/ FOLIC ACID TABLET (FP) PO SCH (09:44)
[2018-06-27] MEDS ORDERED: METHADONE HCL 5 MG TABLET (FOR DETOX USE ONLY) PO ONE (10:00)
--- NOTE | 2018-06-27 15:56 | PN ---
BHS COWS - Scale Resting Pulse: 0= SD 80 or Below Sweatin= Chills/Flushing Restless Observation: 1= Difficult to Sit Still Pupil Size: 0= Normal to Room Light Bone or Joint Aches: 1= Mild Discomfort Runny Nose/ Eye Tearin= Nasal Congestion GI Upset > 30mins: 1= Stomach Cramp Tremor Observation of Outstretched Hands: 2= Slight Tremor Visible Yawning Observation: 2= >3x During Session Anxiety or Irritability: 2=Irritable/Anxious Goose Flesh Skin: 0=Smooth Skin COWS Score: 11 BHS Progress Note (SOAP) Subjective: feeling tired today resting on bed hesitate to discuss aftercare Objective: 06/27/18 15:54 Vital Signs Temperature 100.0 F H 06/27/18 13:19 Pulse Rate 74 06/27/18 13:19 Respiratory Rate 18 06/27/18 13:19 Blood Pressure 102/64 06/27/18 13:19 O2 Sat by Pulse Oximetry (%) Laboratory Last Values WBC 2.9 K/mm3 (4.0-10.0) L 06/26/18 08:25 RBC 4.14 M/mm3 (4.00-5.60) 06/26/18 08:25 Hgb 12.7 GM/dL (11.7-16.9) 06/26/18 08:25 Hct 37.1 % (35.4-49) 06/26/18 08:25 MCV 89.7 fl (80-96) 06/26/18 08:25 MCH 30.8 pg (25.7-33.7) 06/26/18 08:25 MCHC 34.4 g/dl (32.0-35.9) 06/26/18 08:25 RDW 13.4 % (11.9-15.9) 06/26/18 08:25 Plt Count 215 K/MM3 (134-434) D 06/26/18 08:25 MPV 8.9 fl (7.5-11.1) 06/26/18 08:25 Sodium 137 mmol/L (136-145) 06/26/18 08:25 Potassium 4.6 mmol/L (3.5-5.1) 06/26/18 08:25 Chloride 103 mmol/L (98-107) 06/26/18 08:25 Carbon Dioxide 32 mmol/L (21-32) 06/26/18 08:25 Anion Gap 2 MMOL/L (8-16) L 06/26/18 08:25 BUN 16 mg/dL (7-18) 06/26/18 08:25 Creatinine 0.6 mg/dL (0.55-1.3) 06/26/18 08:25 Creat Clearance w eGFR 138.38 (>60) 06/26/18 08:25 Random Glucose 87 mg/dL (74-106) 06/26/18 08:25 Calcium 8.9 mg/dL (8.5-10.1) 06/26/18 08:25 Total Bilirubin 0.5 mg/dL (0.2-1) 06/26/18 08:25 AST 18 U/L (15-37) 06/26/18 08:25 ALT 26 U/L (13-61) 06/26/18 08:25 Alkaline Phosphatase 69 U/L (45-117) 06/26/18 08:25 Total Protein 6.8 g/dl (6.4-8.2) 06/26/18 08:25 Albumin 3.8 g/dl (3.4-5.0) 06/26/18 08:25 Urine Color Yellow 06/26/18 14:50 Urine Appearance Clear 06/26/18 14:50 Urine pH 6.5 (5.0-8.0) 06/26/18 14:50 Ur Specific [place] 1.019 (1.010-1.035) 06/26/18 14:50 Urine Protein Negative (NEGATIVE) 06/26/18 14:50 Urine Glucose (UA) Negative (NEGATIVE) 06/26/18 14:50 Urine Ketones Negative (NEGATIVE) 06/26/18 14:50 Urine Blood Negative (NEGATIVE) 06/26/18 14:50 Urine Nitrite Negative (NEGATIVE) 06/26/18 14:50 Urine Bilirubin Negative (NEGATIVE) 06/26/18 14:50 Urine Urobilinogen 0.2 mg/dL (0.2-1.0) 06/26/18 14:50 Ur Leukocyte Esterase Negative (NEGATIVE) 06/26/18 14:50 RPR Titer Reactive 1:1 (NONREACTIVE) H 06/26/18 08:25 T.pallidum Ab (MHA) Previously reactive (NONREACTIVE) 06/26/18 08:25 lab noted repeat cbc 06/27/18 15:55 Assessment: 06/27/18 15:55 withdrawal sx 06/27/18 15:55 low wbc Plan: continue detox repeat cbc
[2018-06-27 21:59] VITALS: BP 122/88; PULSE 83; TEMP 98.2
[2018-06-27] MEDS: THIAMINE HCL 100 MG TABLET (FP) PO SCH (22:12)
--- NOTE | 2018-06-28 07:38 | DS ---
[facility] Detox Discharge Summary Admission Date: 06/26/18 Discharge Date: 06/28/18 - History Present History: Opioid Dependence Additional Comments: Admitted with c/o opioid withdrawal requesting detox. Pertinent Past History: C/o recent weight loss. - Physical Exam Results Vital Signs: Vital Signs Temperature 98.2 F 06/27/18 21:58 Pulse Rate 83 06/27/18 21:58 Respiratory Rate 16 06/28/18 06:30 Blood Pressure 122/88 06/27/18 21:58 O2 Sat by Pulse Oximetry (%) Pertinent Admission Physical Exam Findings: Patient admitted to detox with a hx of opiate use disorder and in withdrawal.Symptoms of dehydration. Laboratory Last Values WBC 2.9 K/mm3 (4.0-10.0) L 06/26/18 08:25 RBC 4.14 M/mm3 (4.00-5.60) 06/26/18 08:25 Hgb 12.7 GM/dL (11.7-16.9) 06/26/18 08:25 Hct 37.1 % (35.4-49) 06/26/18 08:25 MCV 89.7 fl (80-96) 06/26/18 08:25 MCH 30.8 pg (25.7-33.7) 06/26/18 08:25 MCHC 34.4 g/dl (32.0-35.9) 06/26/18 08:25 RDW 13.4 % (11.9-15.9) 06/26/18 08:25 Plt Count 215 K/MM3 (134-434) D 06/26/18 08:25 MPV 8.9 fl (7.5-11.1) 06/26/18 08:25 Sodium 137 mmol/L (136-145) 06/26/18 08:25 Potassium 4.6 mmol/L (3.5-5.1) 06/26/18 08:25 Chloride 103 mmol/L (98-107) 06/26/18 08:25 Carbon Dioxide 32 mmol/L (21-32) 06/26/18 08:25 Anion Gap 2 MMOL/L (8-16) L 06/26/18 08:25 BUN 16 mg/dL (7-18) 06/26/18 08:25 Creatinine 0.6 mg/dL (0.55-1.3) 06/26/18 08:25 Creat Clearance w eGFR 138.38 (>60) 06/26/18 08:25 Random Glucose 87 mg/dL (74-106) 06/26/18 08:25 Calcium 8.9 mg/dL (8.5-10.1) 06/26/18 08:25 Total Bilirubin 0.5 mg/dL (0.2-1) 06/26/18 08:25 AST 18 U/L (15-37) 06/26/18 08:25 ALT 26 U/L (13-61) 06/26/18 08:25 Alkaline Phosphatase 69 U/L (45-117) 06/26/18 08:25 Total Protein 6.8 g/dl (6.4-8.2) 06/26/18 08:25 Albumin 3.8 g/dl (3.4-5.0) 06/26/18 08:25 Urine Color Yellow 06/26/18 14:50 Urine Appearance Clear 06/26/18 14:50 Urine pH 6.5 (5.0-8.0) 06/26/18 14:50 Ur Specific [place] 1.019 (1.010-1.035) 06/26/18 14:50 Urine Protein Negative (NEGATIVE) 06/26/18 14:50 Urine Glucose (UA) Negative (NEGATIVE) 06/26/18 14:50 Urine Ketones Negative (NEGATIVE) 06/26/18 14:50 Urine Blood Negative (NEGATIVE) 06/26/18 14:50 Urine Nitrite Negative (NEGATIVE) 06/26/18 14:50 Urine Bilirubin Negative (NEGATIVE) 06/26/18 14:50 Urine Urobilinogen 0.2 mg/dL (0.2-1.0) 06/26/18 14:50 Ur Leukocyte Esterase Negative (NEGATIVE) 06/26/18 14:50 RPR Titer Reactive 1:1 (NONREACTIVE) H 06/26/18 08:25 T.pallidum Ab (MHA) Previously reactive (NONREACTIVE) 06/26/18 08:25 Labs reviewed. - Treatment Hospital Course: Detox Protocol Followed (Patient did not complete protocol.), Discharged Condition Good (Alert and oriented. Gait steady.) - Medication Discharge Medications: Ambulatory Orders NK [No Known Home Medication] 06/26/18 - Diagnosis (1) Dehydration Current Visit: Yes Status: Acute (2) History of fracture of right ankle Current Visit: Yes Status: Chronic (3) Nicotine dependence Current Visit: Yes Status: Chronic Qualifiers: Nicotine product type: cigarettes Substance use status: in withdrawal Qualified Code(s): F17.213 - Nicotine dependence, cigarettes, with withdrawal (4) Opioid dependence with withdrawal Current Visit: Yes Status: Acute (5) Weight loss Current Visit: Yes Status: Chronic - AMA Did Patient Leave Against Medical Advice: Yes (Left despite encouragement to stay. Declined Narcan Kit)
--- NOTE | 2018-06-28 07:41 | PN ---
[facility] Progress Note Note: Patient leaving AMA, without providing explanation. Patient is aware of overdose risks and prevention. Offered prescriptions for Narcan Kit and nicotine gum but declined. Patient left AMA.
[2018-06-28] MEDS ORDERED: METHADONE HCL 10 MG TABLET (FOR DETOX USE ONLY) PO ONE (10:00)
[2018-06-28 10:26] LABS: BASO % 1.3 % (0-2.0); EOS % 1.2 % (0-4.5); HEMATOCRIT 36.5 % (35.4-49); HEMOGLOBIN 12.1 GM/dL (11.7-16.9); LYMPH % 21.1 % (8-40); MCH 29.6 pg (25.7-33.7); MCHC 33.2 g/dl (32.0-35.9); MEAN CELL VOLUME 89.2 fl (80-96); MEAN PLT VOLUME 9.1 fl (7.5-11.1); MONO % 11.1 % (3.8-10.2); NEUT % 65.3 % (42.8-82.8); PLATELET COUNT 228 K/MM3 (134-434); RBC 4.09 M/mm3 (4.00-5.60); RDW 13.7 % (11.9-15.9); WHITE BLOOD COUNT 3.1 K/mm3 (4.0-10.0)
[2018-06-29] MEDS ORDERED: METHADONE HCL 5 MG TABLET (FOR DETOX USE ONLY) PO ONE (06:00)
== END 2018-06-28 07:39 | disposition left against medical advice (07) | DRG 770 ==
LOC: YASAS 08:13 → Y3N 09:53
PROVIDERS: ADMIT Surgery; ATTEND Surgery
PROC: HZ2ZZZZ Detoxification Services for Substance Abuse Treatment (ICD-10-PCS; principal; 2018-06-26)
DX: F11.23 Opioid dependence with withdrawal (principal); F17.213 Nicotine dependence, cigarettes, with withdrawal; F32.9 Major depressive disorder, single episode, unspecified; E86.0 Dehydration; R63.4 Abnormal weight loss; Z68.21 Body mass index [BMI] 21.0-21.9, adult; Z87.81 Personal history of (healed) traumatic fracture
CPT/HCPCS: 36415; 80053; 81003; 85025; 85027; 86593; 86780; J0735

== ENCOUNTER 2018-07-04 09:44 | Inpatient (IN) | payer OTHER ==
[2018-07-04 10:16] VITALS: BMI 21.4
--- NOTE | 2018-07-04 10:51 | HP ---
COWS - Scale Resting Pulse: 0= [place] 80 or Below Sweatin= Chills/Flushing Restless Observation: 1= Difficult to Sit Still Pupil Size: 0= Normal to Room Light Bone or Joint Aches: 2= Severe Diffuse Aches Runny Nose/ Eye Tearin= Runny Nose/Eyes GI Upset > 30mins: 2= Nausea/Diarrhea Tremor Observation: 0= None Yawning Observation: 0= None Anxiety or Irritability: 2=Irritable/Anxious Goose Flesh Skin: 0=Smooth Skin COWS Score: 10 CIWA Score - Admission Criteria OASAS Guidelines: Admission for Medically Managed Detox: Requires at least one of the followin. CIWA greater than 12 2. Seizures within the past 24 hours 3. Delirium tremens within the past 24 hours 4. Hallucinations within the past 24 hours 5. Acute intervention needed for co occurring medical disorder 6. Acute intervention needed for co occurring psychiatric disorder 7. Severe withdrawal that cannot be handled at a lower level of care (continued vomiting, continued diarrhea, abnormal vital signs) requiring intravenous medication and/or fluids 8. Admission ROS [facility] Allergies/Adverse Reactions: Allergies Allergy/AdvReac Type Severity Reaction Status Date / Time No Known Allergies Allergy Verified 07/04/18 10:10 History of Present Illness: pt here requesting detox from opiate use , reports heroin use 5-6 bags via inhalation , relapse after d/c from this facility 06/28/18 . currnet symptoms as above, latest use [place] today . Denies OD . tobacco : 7 cigs/day PMHX : denies PShx : ankle R ORIF 2/2 slip and fall on ice 1995 PSYch : denies Meds : denie s Exam Limitations: No Limitations - Ebola screening Have you traveled outside of the country in the last 21 days: No Have you had contact with anyone from an Ebola affected area: No Do you have a fever: No - Review of Systems Constitutional: See HPI EENT: reports: See HPI, Blurred Vision (reports glasses , did not bring) Respiratory: reports: No Symptoms reported Cardiac: reports: No Symptoms Reported GI: reports: See HPI : reports: No Symptoms Reported Musculoskeletal: reports: See HPI Integumentary: reports: No Symptoms Reported Neuro: reports: No Symptoms reported Endocrine: reports: No Symptoms Reported Psychiatric: reports: Orientated x3, Anxious Patient History - Patient Medical History Hx Anemia: No Hx Asthma: No Hx Chronic Obstructive Pulmonary Disease (COPD): No Hx Cancer: No Hx Cardiac Disorders: No Hx Congestive Heart Failure: No Hx Hypertension: No Hx Hypercholesterolemia: No Hx Pacemaker: No HX Cerebrovascular Accident: No Hx Seizures: No Hx Dementia: No Hx Diabetes: No Hx Gastrointestinal Disorders: No Hx Liver Disease: No Hx Genitourinary Disorders: No Hx Sexually Transmitted Disorders: No Hx Renal Disease (ESRD): No Hx Thyroid Disease: No Hx Human Immunodeficiency Virus (HIV): No (NEGATIVE HX last 02/14 ) Hx Hepatitis C: No Hx Depression: Yes (no medication) Hx Suicide Attempt: No Hx Bipolar Disorder: No Hx Schizophrenia: No - Patient Surgical History Past Surgical History: Yes Hx Neurologic Surgery: No Hx Cataract Extraction: No Hx Cardiac Surgery: No Hx Lung Surgery: No Hx Breast Surgery: No Hx Breast Biopsy: No Hx Abdominal Surgery: No Hx Appendectomy: No Hx Cholecystectomy: No Hx Genitourinary Surgery: No Hx Section: No Hx Orthopedic Surgery: Yes (right ankle in 1995) Anesthesia Reaction: No - PPD History Date: 07/21/16 Results: 0 mm - Smoking Cessation Smoking history: Current every day smoker Have you smoked in the past 12 months: Yes Aproximately how many cigarettes per day: 7 Cigars Per Day: 0 Hx Chewing Tobacco Use: No Initiated information on smoking cessation: No - Substances abused Heroin Substance route: Inhalation Frequency: Daily Amount used: 6 bags Age of first use: 35 Date of last use: 07/04/18 Family Disease History - Family Disease History Family Disease History: Diabetes: Mother (HTN), Heart Disease: Mother, Other: Brother (DRUG ADDICTION,SOBER) Admission Physical Exam S - Vital Signs Vital Signs: Vital Signs - 24 hr 07/04/18 10:09 Temperature 97.8 F Pulse Rate 66 Respiratory 16 Rate Blood Pressure 126/78 - Physical General Appearance: Yes: Mild Distress, Irritable, Anxious HEENTM: Yes: EOMI, Hearing grossly Normal, Normocephalic, Normal Voice, Other ( upper dentures) Respiratory: Yes: Chest Non-Tender, Lungs Clear, Normal Breath Sounds Neck: Yes: No masses,lesions,Nodules, Trachea in good position Cardiology: Yes: Regular Rhythm, Regular Rate, S1, S2 Abdominal: Yes: Normal Bowel Sounds, Soft Back: Yes: Normal Inspection Musculoskeletal: Yes: full range of Motion, Gait Steady Extremities: Yes: Other (r ankle surgical scarring , mild residual edema) Neurological: Yes: Fully Oriented, Alert, Motor Strength 5/5 - Diagnostic (1) Opioid dependence with withdrawal Current Visit: Yes Status: Acute (2) Nicotine dependence Current Visit: Yes Status: Chronic Qualifiers: Nicotine product type: cigarettes Breathalyzer - Breathalyzer Breathalyzer: 0 Urine Drug Screen - Test Device Lot number: [id number] Expiration date: 01/28/20 - Control Is test valid?: Yes - Results Drug screen NEGATIVE: No Urine drug screen results: MOP-Opiates, BZO-Benzodiazepines Inpatient Rehab Admission - Rehab Decision to Admit Inpatient rehab admission?: No
[2018-07-04] MEDS ORDERED: MENTHOL/PHENOL 1 EACH UD MM PRN (10:53)
[2018-07-04] MEDS ORDERED: MELATONIN 5 MG TABLETS PO PRN (10:53)
[2018-07-04] MEDS ORDERED: METHOCARBAMOL 500 MG TABLET PO PRN (10:53)
[2018-07-04] MEDS ORDERED: DICYCLOMINE HCL 10 MG CAPSULE PO PRN (10:53)
[2018-07-04] MEDS ORDERED: MAGNESIUM HYDROX 2400MG/30ML ORAL SUSPENSION 30 ML CUP PO PRN (10:53)
[2018-07-04] MEDS ORDERED: ACETAMINOPHEN 325 MG TABLET (FP) PO PRN ×2 (10:53)
[2018-07-04] MEDS ORDERED: cloNIDine HCL 0.1 MG TABLET PO PRN ×2 (10:53→18:18)
[2018-07-04] MEDS ORDERED: hydrOXYzine PAMOATE 25 MG CAPSULE (FP) PO PRN ×2 (10:53→18:19)
[2018-07-04] MEDS ORDERED: IBUPROFEN 400 MG TABLET (FP) PO PRN (10:53)
[2018-07-04] MEDS ORDERED: MAG HYDROX/AL HYDROX/SIMETH 30 ML UNIT-DOSE CUP PO PRN (10:53)
[2018-07-04] MEDS ORDERED: MAGNESIUM CITRATE 300 ML BOTTLE PO PRN (10:53)
[2018-07-04] MEDS ORDERED: METHADONE HCL 5 MG TABLET (FOR DETOX USE ONLY) PO ONE (11:45)
[2018-07-04] MEDS: diazePAM 5 MG TABLET PO PRN ×2 (18:37→22:54)
[2018-07-04] MEDS: THIAMINE HCL 100 MG TABLET (FP) PO SCH (22:55)
[2018-07-05] MEDS: diazePAM 5 MG TABLET PO PRN ×4 (06:37→22:03)
[2018-07-05] MEDS ORDERED: METHADONE HCL 5 MG TABLET (FOR DETOX USE ONLY) PO ONE (10:00)
[2018-07-05] MEDS ORDERED: PRENATAL VITAMINS W/ FOLIC ACID TABLET (FP) PO SCH (10:00)
--- NOTE | 2018-07-05 10:18 | PN ---
BHS COWS - Scale Resting Pulse: 0= [place] 80 or Below Sweatin= Chills/Flushing Restless Observation: 1= Difficult to Sit Still Pupil Size: 0= Normal to Room Light Bone or Joint Aches: 2= Severe Diffuse Aches Runny Nose/ Eye Tearin= None GI Upset > 30mins: 0= None Tremor Observation of Outstretched Hands: 2= Slight Tremor Visible Yawning Observation: 1= 1-2x During Session Anxiety or Irritability: 2=Irritable/Anxious Goose Flesh Skin: 0=Smooth Skin COWS Score: 9 BHS Progress Note (SOAP) Subjective: body aches sweats tired interrupted sleep chills Objective: 07/05/18 10:15 Vital Signs Temperature 99.7 F H 07/05/18 10:00 Pulse Rate 68 07/05/18 10:00 Respiratory Rate 18 07/05/18 10:00 Blood Pressure 106/68 07/05/18 10:00 O2 Sat by Pulse Oximetry (%) labs ordered aaox3 ambulating no acute distress Assessment: 07/05/18 10:17 withdrawal sx Plan: continue detox increase fluids labs ordered
[2018-07-05] MEDS: THIAMINE HCL 100 MG TABLET (FP) PO SCH (22:03)
[2018-07-06 06:37] VITALS: BP 111/67; PULSE 65; TEMP 97.7
--- NOTE | 2018-07-06 06:47 | DS ---
[facility] Detox Discharge Summary Admission Date: 07/04/18 Discharge Date: 07/06/18 - History Present History: Opioid Dependence Additional Comments: CLIENT REQUESTING TO SIGN OUT. NOT RECEPTIVE TO WRITERS DISCUSSION AND ENCOURAGEMENT TO COMPLETE TXMENT HE ALSO AMA LAST VISIT WHICH WAS ABOUT A WEEK AGO. CLIENT ACCEPTS RISK REGARDING POSSIBLE OVERDOSE AND . DECLINES NARCAN KIT. "MISS i DONT WANT ANYTHING, i JUST WANT TO LEAVE" Pertinent Past History: HX/O DEPRESSION NICOTINE DEP - Physical Exam Results Vital Signs: Vital Signs Temperature 97.7 F 07/06/18 06:36 Pulse Rate 65 07/06/18 06:36 Respiratory Rate 18 07/06/18 06:36 Blood Pressure 111/67 07/06/18 06:36 O2 Sat by Pulse Oximetry (%) Pertinent Admission Physical Exam Findings: withdrawal sx's NO LABS CLIENT IS SIGNING OUT IN LESS THAN 24 HOUR STAY - Treatment Hospital Course: Discharged Condition Good Patient has Accepted a Rehab Referral to: declines - Medication Discharge Medications: Ambulatory Orders NK [No Known Home Medication] 06/26/18 - Diagnosis (1) Opioid dependence with withdrawal Status: Acute - AMA Did Patient Leave Against Medical Advice: Yes (PT ACCEPTS RISK OF POSSIBLE OVERDOSE AND . )
[2018-07-06] MEDS ORDERED: METHADONE HCL 10 MG TABLET (FOR DETOX USE ONLY) PO ONE (10:00)
[2018-07-07] MEDS ORDERED: METHADONE HCL 5 MG TABLET (FOR DETOX USE ONLY) PO ONE (06:00)
== END 2018-07-06 06:49 | disposition left against medical advice (07) | DRG 770 ==
LOC: YASAS 09:44 → Y6N 11:27 → Y3N 07-05 20:16
PROVIDERS: ADMIT Surgery; ATTEND Surgery
PROC: HZ2ZZZZ Detoxification Services for Substance Abuse Treatment (ICD-10-PCS; principal; 2018-07-04)
DX: F11.20 Opioid dependence, uncomplicated (principal); F17.210 Nicotine dependence, cigarettes, uncomplicated
CPT/HCPCS: J0735

== ENCOUNTER 2018-09-27 11:16 | Inpatient (IN) | payer OTHER ==
[2018-09-27 11:50] VITALS: BMI 21.2
--- NOTE | 2018-09-27 13:37 | HP ---
COWS - Scale Resting Pulse: 2= [place] 101-120 Sweatin= Chills/Flushing Restless Observation: 1= Difficult to Sit Still Pupil Size: 0= Normal to Room Light Bone or Joint Aches: 2= Severe Diffuse Aches Runny Nose/ Eye Tearin= Nasal Congestion GI Upset > 30mins: 2= Nausea/Diarrhea Tremor Observation: 0= None Yawning Observation: 2= >3x During Session Anxiety or Irritability: 2=Irritable/Anxious Goose Flesh Skin: 0=Smooth Skin COWS Score: 13 CIWA Score - Admission Criteria OASAS Guidelines: Admission for Medically Managed Detox: Requires at least one of the followin. CIWA greater than 12 2. Seizures within the past 24 hours 3. Delirium tremens within the past 24 hours 4. Hallucinations within the past 24 hours 5. Acute intervention needed for co occurring medical disorder 6. Acute intervention needed for co occurring psychiatric disorder 7. Severe withdrawal that cannot be handled at a lower level of care (continued vomiting, continued diarrhea, abnormal vital signs) requiring intravenous medication and/or fluids 8. Admission ROS [facility] Chief Complaint: 58 y/o M with no significant PMH who presents for detox from heroin. Allergies/Adverse Reactions: Allergies Allergy/AdvReac Type Severity Reaction Status Date / Time No Known Allergies Allergy Verified 09/27/18 11:44 History of Present Illness: 58 y/o M with no significant PMH who presents for detox from heroin. Last use was a few hours ago ; used 2 bags via inhalation. Usually uses ten bags daily via inhalation. Never IVDA. Uses because it makes him feel "happy and numb." Longest sobriety was for five years when he was working and going to school for Computer studies. Relapsed because he "wanted to feel the high again." Used to be in a methadone program in [place] however didn't like it. Was on a dose of 40mg qd. Was also on suboxone previously but did not like the taste. Also drinks alcohol during this time 1 beer every few days. Drinks 5 beers a week. No history of alcohol withdrawal seizures or blackouts. Has been here previously for detox at [facility] 06/2018, 05/2018 and many other visits was also at detox in [facility] - at [facility] previously. PMH: as above PsxH; denies meds: denies allergies: NKDA FH: non-contributory SH: has smoked since he was 20 yrs old. currently smokes 5-7 cigs/day. alcohol and heroin use as above. Exam Limitations: No Limitations - Ebola screening Have you traveled outside of the country in the last 21 days: No Have you had contact with anyone from an Ebola affected area: No Have you been sick,other than usual withdrawal symptoms: No Do you have a fever: No - Review of Systems Constitutional: Chills, Diaphoresis, Night Sweats, Unexplained wgt Loss (+18 pound weight loss - over 4 months) EENT: reports: No Symptoms Reported Respiratory: reports: No Symptoms reported Cardiac: reports: No Symptoms Reported GI: reports: Nausea, Vomiting : reports: No Symptoms Reported Musculoskeletal: reports: Muscle Pain Integumentary: reports: No Symptoms Reported Neuro: reports: Weakness Endocrine: reports: No Symptoms Reported Hematology: reports: No Symptoms Reported Psychiatric: reports: Orientated x3 Patient History - Patient Medical History Hx Anemia: No Hx Asthma: No Hx Chronic Obstructive Pulmonary Disease (COPD): No Hx Cancer: No Hx Cardiac Disorders: No Hx Congestive Heart Failure: No Hx Hypertension: No Hx Hypercholesterolemia: No Hx Pacemaker: No HX Cerebrovascular Accident: No Hx Seizures: No Hx Dementia: No Hx Diabetes: No Hx Gastrointestinal Disorders: No Hx Liver Disease: No Hx Genitourinary Disorders: No Hx Sexually Transmitted Disorders: No Hx Renal Disease (ESRD): No Hx Thyroid Disease: No Hx Human Immunodeficiency Virus (HIV): No (NEGATIVE HX last 02/14 ) Hx Hepatitis C: No Hx Depression: Yes (no medication) Hx Suicide Attempt: No Hx Bipolar Disorder: No Hx Schizophrenia: No - Patient Surgical History Past Surgical History: Yes Hx Neurologic Surgery: No Hx Cataract Extraction: No Hx Cardiac Surgery: No Hx Lung Surgery: No Hx Breast Surgery: No Hx Breast Biopsy: No Hx Abdominal Surgery: No Hx Appendectomy: No Hx Cholecystectomy: No Hx Genitourinary Surgery: No Hx Section: No Hx Orthopedic Surgery: Yes (right ankle in 1995) Anesthesia Reaction: No - PPD History Date: 07/21/16 Results: 0 mm PPD to be Administered?: Yes - Reproductive History Patient is a Female of Child Bearing Age (11 -55 yrs old): No - Smoking Cessation Smoking history: Current every day smoker Have you smoked in the past 12 months: Yes Aproximately how many cigarettes per day: 7 Cigars Per Day: 0 Hx Chewing Tobacco Use: No Initiated information on smoking cessation: Yes 'Breaking Loose' booklet given: 09/27/18 - Substance & Tx. History Hx Alcohol Use: Yes Substance Use Type: Alcohol, Heroin Hx Substance Use Treatment: Yes ([facility] 05/2018, 06/2018. also [facility] ) - Substances abused Heroin Substance route: Inhalation Frequency: Daily Amount used: 10 bags daily; 2 bags before coming in today Age of first use: 34 Date of last use: 09/27/18 Alcohol Substance route: Oral Frequency: Daily Amount used: 1 can of beer at a time Age of first use: 25 Date of last use: 09/26/18 Family Disease History - Family Disease History Family Disease History: Diabetes: Mother (HTN), Heart Disease: Mother, Other: Brother (DRUG ADDICTION,SOBER) Admission Physical Exam [facility] - Vital Signs Vital Signs: Vital Signs - 24 hr 09/27/18 11:46 Temperature 98.1 F Pulse Rate 112 H Respiratory 18 Rate Blood Pressure 109/69 - Physical General Appearance: Yes: Within Normal Limits, Appropriately Dressed HEENTM: Yes: Within Normal Limits Respiratory: Yes: Lungs Clear Neck: Yes: Supple Breast: Yes: Breast Exam Deferred Cardiology: Yes: Regular Rhythm, Regular Rate, S1, S2 Abdominal: Yes: Within Normal Limits, Non Tender Genitourinary: Yes: Within Normal Limits Back: Yes: Within Normal Limits Musculoskeletal: Yes: full range of Motion Extremities: Yes: Within Normal Limits Neurological: Yes: tire bagger II-XII NML intact Integumentary: Yes: Normal Color, Dry, Warm Lymphatic: Yes: Within Normal Limits - Diagnostic (1) Dehydration Current Visit: Yes Status: Chronic (2) Opioid dependence with withdrawal Current Visit: Yes Status: Acute (3) Nicotine dependence Current Visit: Yes Status: Chronic Qualifiers: Nicotine product type: cigarettes Cleared for Admission [facility] - Detox or Rehab [facility] Level of Care: Medically Managed Detox Regimen/Protocol: Methadone Breathalyzer - Breathalyzer Breathalyzer: 0 Urine Drug Screen - Test Device Lot number: [id number] Expiration date: 06/27/20 - Control Is test valid?: Yes - Results Drug screen NEGATIVE: Yes Urine drug screen results: MOP-Opiates, OXY-Oxycodone, BUP-Suboxone Inpatient Rehab Admission - Rehab Decision to Admit Inpatient rehab admission?: No
[2018-09-27] MEDS ORDERED: cloNIDine HCL 0.1 MG TABLET PO PRN (14:01)
[2018-09-27] MEDS ORDERED: MAG HYDROX/AL HYDROX/SIMETH 30 ML UNIT-DOSE CUP PO PRN (14:05)
[2018-09-27] MEDS ORDERED: BISMUTH SUBSALICYLATE 524 MG/30 ML UD PO PRN (14:05)
[2018-09-27] MEDS ORDERED: MELATONIN 5 MG TABLETS PO PRN (14:05)
[2018-09-27] MEDS ORDERED: MENTHOL/PHENOL 1 EACH UD MM PRN (14:05)
[2018-09-27] MEDS ORDERED: hydrOXYzine PAMOATE 25 MG CAPSULE (FP) PO PRN (14:05)
[2018-09-27] MEDS ORDERED: IBUPROFEN 400 MG TABLET (FP) PO PRN (14:05)
[2018-09-27] MEDS ORDERED: MAGNESIUM HYDROX 2400MG/30ML ORAL SUSPENSION 30 ML CUP PO PRN (14:05)
[2018-09-27] MEDS ORDERED: ACETAMINOPHEN 325 MG TABLET (FP) PO PRN ×2 (14:05)
--- NOTE | 2018-09-27 14:09 | PN ---
Teaching Attending Note Name of Resident: Amy Pereira ATTENDING PHYSICIAN STATEMENT I saw and evaluated the patient. I reviewed the resident's note and discussed the case with the resident. I agree with the resident's findings and plan as documented. SUBJECTIVE: this 58 years old male with heroin dependence,seeking detox,withdrawal symptom, multiple admissions in detox but keep relapsing OBJECTIVE: withdrawal signs and symptom ASSESSMENT AND PLAN: this 58 years old male with heroin dependence,need inpatient detox with methadone,medically managed, methadone regimen,plan for rehab after detox
[2018-09-27] MEDS ORDERED: METHADONE HCL 10 MG TABLET (FOR DETOX USE ONLY) PO ONE (14:45)
[2018-09-27 16:31] LABS: HEMATOCRIT 38.5 % (35.4-49); HEMOGLOBIN 12.8 GM/dL (11.7-16.9); MCH 29.8 pg (25.7-33.7); MCHC 33.2 g/dl (32.0-35.9); MEAN CELL VOLUME 89.9 fl (80-96); MEAN PLT VOLUME 8.9 fl (7.5-11.1); PLATELET COUNT 225 K/MM3 (134-434); RBC 4.29 M/mm3 (4.00-5.60); RDW 13.7 % (11.9-15.9)
[2018-09-27 16:46] LABS: BILIRUBIN,TOTAL 0.8 mg/dL (0.2-1); CALCIUM 9.3 mg/dL (8.5-10.1); CREATININE 0.8 mg/dL (0.55-1.3); POTASSIUM 4.3 mmol/L (3.5-5.1); TOT PROT 7.1 g/dl (6.4-8.2)
[2018-09-27] MEDS: THIAMINE HCL 100 MG TABLET (FP) PO SCH (21:13)
[2018-09-27] MEDS: diazePAM 5 MG TABLET PO PRN (21:13)
[2018-09-27] MEDS: METHOCARBAMOL 500 MG TABLET PO PRN (21:14)
[2018-09-28] MEDS: diazePAM 5 MG TABLET PO PRN ×4 (06:19→20:20)
[2018-09-28] MEDS: METHOCARBAMOL 500 MG TABLET PO PRN ×3 (06:19→20:21)
[2018-09-28] MEDS ORDERED: METHADONE HCL 10 MG TABLET (FOR DETOX USE ONLY) ONE (09:06)
[2018-09-28] MEDS ORDERED: METHADONE HCL 5 MG TABLET (FOR DETOX USE ONLY) ONE (09:07)
[2018-09-28] MEDS ORDERED: METHADONE (DETOX) 20 MG, METHADONE (DETOX) 5 MG PO ONE (10:00)
[2018-09-28] MEDS: PRENATAL VITAMINS W/ FOLIC ACID TABLET (FP) PO SCH (10:12)
[2018-09-28 11:44] LABS: RPR REACTIVE 1:1 (NONREACTIVE)
[2018-09-28 11:45] LABS: TREPONEMA ANTIBODY PREVIOUSLY REACTIVE (NONREACTIVE)
--- NOTE | 2018-09-28 11:53 | PN ---
BHS COWS - Scale Resting Pulse: 0= [place] 80 or Below Sweatin=Flushed/Facial Moisture Restless Observation: 1= Difficult to Sit Still Pupil Size: 0= Normal to Room Light Bone or Joint Aches: 2= Severe Diffuse Aches Runny Nose/ Eye Tearin= Runny Nose/Eyes GI Upset > 30mins: 0= None Tremor Observation of Outstretched Hands: 1= Tremor [place], Not Seen Yawning Observation: 1= 1-2x During Session Anxiety or Irritability: 2=Irritable/Anxious Goose Flesh Skin: 0=Smooth Skin COWS Score: 11 S Progress Note (SOAP) Subjective: sweats shakes interrupted sleep body aches Objective: 09/28/18 11:53 Vital Signs Temperature 99.1 F 09/28/18 09:42 Pulse Rate 71 09/28/18 09:42 Respiratory Rate 18 09/28/18 09:42 Blood Pressure 108/64 09/28/18 09:42 O2 Sat by Pulse Oximetry (%) Laboratory Tests 09/27/18 09/27/18 09/27/18 14:20 14:20 14:20 WBC 3.0 L RBC 4.29 Hgb 12.8 Hct 38.5 MCV 89.9 MCH 29.8 MCHC 33.2 RDW 13.7 Plt Count 225 MPV 8.9 Sodium 142 Potassium 4.3 Chloride 106 Carbon Dioxide 32 Anion Gap 5 L BUN 19.0 H Creatinine 0.8 Est GFR (CKD-EPI)AfAm 114.13 Est GFR (CKD-EPI)NonAf 98.47 Random Glucose 71 L Calcium 9.3 Total Bilirubin 0.8 AST 54 H ALT 33 Alkaline Phosphatase 68 Total Protein 7.1 Albumin 4.0 RPR Titer Reactive 1:1 H T.pallidum Ab (MHA) Previously reactive labs noted aaox3 ambulating no acute distress Assessment: 09/28/18 11:59 withdrawals Plan: continue detox increase fluids trazadone 50mg qhs
[2018-09-28] MEDS: traZODone HCL 50 MG TABLET (FP) PO SCH (23:25)
[2018-09-28] MEDS: THIAMINE HCL 100 MG TABLET (FP) PO SCH (23:25)
[2018-09-29] MEDS: diazePAM 5 MG TABLET PO PRN ×3 (05:15→22:33)
[2018-09-29] MEDS: METHOCARBAMOL 500 MG TABLET PO PRN ×2 (05:16→17:41)
[2018-09-29] MEDS: PRENATAL VITAMINS W/ FOLIC ACID TABLET (FP) PO SCH (09:23)
[2018-09-29] MEDS ORDERED: METHADONE HCL 10 MG TABLET (FOR DETOX USE ONLY) PO ONE (10:00)
--- NOTE | 2018-09-29 13:28 | PN ---
[facility] COWS - Scale Resting Pulse: 0= [place] 80 or Below Sweatin= Chills/Flushing Restless Observation: 1= Difficult to Sit Still Pupil Size: 0= Normal to Room Light Bone or Joint Aches: 1= Mild Discomfort Runny Nose/ Eye Tearin= Nasal Congestion GI Upset > 30mins: 0= None Tremor Observation of Outstretched Hands: 1= Tremor Gill, Not Seen Yawning Observation: 1= 1-2x During Session Anxiety or Irritability: 1=Feels Anxious/Irritable Goose Flesh Skin: 0=Smooth Skin COWS Score: 7 BHS Progress Note (SOAP) Subjective: sweats irritable tired Objective: 09/29/18 13:28 Vital Signs Temperature 97.3 F L 09/29/18 09:20 Pulse Rate 66 09/29/18 09:20 Respiratory Rate 18 09/29/18 09:20 Blood Pressure 120/75 09/29/18 09:20 O2 Sat by Pulse Oximetry (%) Laboratory Tests 09/27/18 09/27/18 09/27/18 14:20 14:20 14:20 WBC 3.0 L RBC 4.29 Hgb 12.8 Hct 38.5 MCV 89.9 MCH 29.8 MCHC 33.2 RDW 13.7 Plt Count 225 MPV 8.9 Sodium 142 Potassium 4.3 Chloride 106 Carbon Dioxide 32 Anion Gap 5 L BUN 19.0 H Creatinine 0.8 Est GFR (CKD-EPI)AfAm 114.13 Est GFR (CKD-EPI)NonAf 98.47 Random Glucose 71 L Calcium 9.3 Total Bilirubin 0.8 AST 54 H ALT 33 Alkaline Phosphatase 68 Total Protein 7.1 Albumin 4.0 RPR Titer Reactive 1:1 H T.pallidum Ab (MHA) Previously reactive labs noted aaox3 ambulating no acute distress Assessment: 09/29/18 13:28 withdrawal sx Plan: continue detox increase fluids
[2018-09-29] MEDS: traZODone HCL 50 MG TABLET (FP) PO SCH (22:30)
[2018-09-29] MEDS: THIAMINE HCL 100 MG TABLET (FP) PO SCH (22:31)
[2018-09-30 06:42] VITALS: BP 100/67; PULSE 60; TEMP 97.7
[2018-09-30] MEDS ORDERED: METHADONE (DETOX) 10 MG, METHADONE (DETOX) 5 MG PO ONE (10:00)
[2018-10-01] MEDS ORDERED: METHADONE HCL 10 MG TABLET (FOR DETOX USE ONLY) PO ONE (10:00)
[2018-10-02] MEDS ORDERED: METHADONE HCL 5 MG TABLET (FOR DETOX USE ONLY) PO ONE (06:00)
== END 2018-09-30 07:23 | disposition left against medical advice (07) | DRG 770 ==
LOC: YASAS 11:16 → Y6N 14:03
PROVIDERS: ADMIT Surgery; ATTEND Surgery
PROC: HZ2ZZZZ Detoxification Services for Substance Abuse Treatment (ICD-10-PCS; principal; 2018-09-27)
DX: F11.23 Opioid dependence with withdrawal (principal); F10.230 Alcohol dependence with withdrawal, uncomplicated; F17.210 Nicotine dependence, cigarettes, uncomplicated; E86.0 Dehydration
CPT/HCPCS: 36415; 80053; 85027; 86480; 86593; 86780; J0735

== ENCOUNTER 2018-11-16 09:08 | Inpatient (IN) | payer OTHER ==
[2018-11-16 09:28] VITALS: BMI 21.9
--- NOTE | 2018-11-16 10:07 | HP ---
COWS - Scale Resting Pulse: 0= [place] 80 or Below Sweatin= Chills/Flushing Restless Observation: 0= Sits Still Pupil Size: 0= Normal to Room Light Bone or Joint Aches: 2= Severe Diffuse Aches Runny Nose/ Eye Tearin= Nasal Congestion GI Upset > 30mins: 1= Stomach Cramp Tremor Observation: 0= None Yawning Observation: 0= None Anxiety or Irritability: 1=Feels Anxious/Irritable Goose Flesh Skin: 0=Smooth Skin COWS Score: 6 CIWA Score Nausea/Vomitin-Mild Nausea/No Vomiting Muscle Tremors: 1-None Visible, but Thurman Anxiety: 1-Mildly Anxious Agitation: 0-Normal Activity Paroxysmal Sweats: 1-Minimal Palms Moist Orientation: 2-Disoriented Date<2 days Tacttile Disturbances: 0-None Auditory Disturbances: 0-None Visual Disturbances: 2-Mild Sensitivity Headache: 0-None Present CIWA-Ar Total Score: 8 - Admission Criteria OASAS Guidelines: Admission for Medically Managed Detox: Requires at least one of the followin. CIWA greater than 12 2. Seizures within the past 24 hours 3. Delirium tremens within the past 24 hours 4. Hallucinations within the past 24 hours 5. Acute intervention needed for co occurring medical disorder 6. Acute intervention needed for co occurring psychiatric disorder 7. Severe withdrawal that cannot be handled at a lower level of care (continued vomiting, continued diarrhea, abnormal vital signs) requiring intravenous medication and/or fluids 8. Admission ROS [facility] Allergies/Adverse Reactions: Allergies Allergy/AdvReac Type Severity Reaction Status Date / Time No Known Allergies Allergy Verified 11/16/18 09:23 History of Present Illness: 58 y.o. male requesting detox from heroin and alcohol, claims 2-3 x 20 oz beer /day since 2 mo ago , latest use yesterday current symptoms as above , denies seizures , blackouts or tremors . " I don't have to have it every day " heroin : 7 bags heroin via inhalation , denies ivdu , latest use this morning , current symptoms as above , prior detox at this facility . PMHX : sdenies Exam Limitations: No Limitations - Ebola screening Have you traveled outside of the country in the last 21 days: No Have you had contact with anyone from an Ebola affected area: No Do you have a fever: No - Review of Systems Constitutional: See HPI EENT: reports: No Symptoms Reported Respiratory: reports: No Symptoms reported Cardiac: reports: No Symptoms Reported GI: reports: See HPI : reports: No Symptoms Reported Musculoskeletal: reports: See HPI Integumentary: reports: No Symptoms Reported Neuro: reports: No Symptoms reported Endocrine: reports: No Symptoms Reported Psychiatric: reports: Orientated x3 Patient History - Patient Medical History Hx Anemia: No Hx Asthma: No Hx Chronic Obstructive Pulmonary Disease (COPD): No Hx Cancer: No Hx Cardiac Disorders: No Hx Congestive Heart Failure: No Hx Hypertension: No Hx Hypercholesterolemia: No Hx Pacemaker: No HX Cerebrovascular Accident: No Hx Seizures: No Hx Dementia: No Hx Diabetes: No Hx Gastrointestinal Disorders: No Hx Liver Disease: No Hx Genitourinary Disorders: No Hx Sexually Transmitted Disorders: No Hx Renal Disease (ESRD): No Hx Thyroid Disease: No Hx Human Immunodeficiency Virus (HIV): No (NEGATIVE HX last 02/14 ) Hx Hepatitis C: No Hx Depression: Yes (no medication) Hx Suicide Attempt: No Hx Bipolar Disorder: No Hx Schizophrenia: No - Patient Surgical History Past Surgical History: Yes Hx Neurologic Surgery: No Hx Cataract Extraction: No Hx Cardiac Surgery: No Hx Lung Surgery: No Hx Breast Surgery: No Hx Breast Biopsy: No Hx Abdominal Surgery: No Hx Appendectomy: No Hx Cholecystectomy: No Hx Genitourinary Surgery: No Hx Section: No Hx Orthopedic Surgery: Yes (right ankle in 1995) Anesthesia Reaction: No - PPD History Date: 07/21/16 Results: 0 mm - Smoking Cessation Smoking history: Current every day smoker Have you smoked in the past 12 months: Yes Aproximately how many cigarettes per day: 7 Cigars Per Day: 0 Hx Chewing Tobacco Use: No Initiated information on smoking cessation: No - Substances abused Heroin Substance route: Inhalation Frequency: Daily Amount used: 6-7 bags/day Age of first use: 34 Date of last use: 09/27/18 Alcohol Substance route: Oral Frequency: Daily Amount used: 2-3 20oz can of beer at a time Age of first use: 17 Date of last use: 09/25/18 Family Disease History - Family Disease History Family Disease History: Diabetes: Mother (HTN), Heart Disease: Mother, Other: Brother (DRUG ADDICTION,SOBER) Admission Physical Exam [facility] - Vital Signs Vital Signs: Vital Signs - 24 hr 11/16/18 11/16/18 09:15 09:41 Temperature 98.6 F 98.6 F Pulse Rate 70 70 Respiratory 18 18 Rate Blood Pressure 133/75 133/75 - Physical General Appearance: Yes: No Apparent Distress HEENTM: Yes: EOMI, Hearing grossly Normal, Normocephalic, Normal Voice Respiratory: Yes: Chest Non-Tender, Lungs Clear, Normal Breath Sounds, No Respiratory Distress, No Accessory Muscle Use Neck: Yes: No masses,lesions,Nodules, Trachea in good position Cardiology: Yes: Regular Rhythm, Regular Rate, S1, S2 Abdominal: Yes: Non Tender, Soft Back: Yes: Normal Inspection Musculoskeletal: Yes: Gait Steady Extremities: Yes: Normal Inspection, Normal Range of Motion Neurological: Yes: Fully Oriented, Alert Integumentary: Yes: Warm - Diagnostic (1) Nicotine dependence Current Visit: No Status: Chronic Qualifiers: Nicotine product type: cigarettes (2) Opioid dependence Current Visit: Yes Status: Chronic Qualifiers: Substance use status: with intoxication (3) Alcohol abuse, episodic Current Visit: Yes Status: Acute Breathalyzer - Breathalyzer Breathalyzer: 0 Urine Drug Screen - Test Device Lot number: [id number] Expiration date: 07/28/20 - Control Is test valid?: Yes - Results Drug screen NEGATIVE: Yes Urine drug screen results: FEN-Fentanyl, MOP-Opiates, OXY-Oxycodone, BUP- Suboxone Inpatient Rehab Admission - Rehab Decision to Admit Inpatient rehab admission?: No
[2018-11-16] MEDS ORDERED: MENTHOL/PHENOL 1 EACH UD MM PRN (10:23)
[2018-11-16] MEDS ORDERED: IBUPROFEN 400 MG TABLET (FP) PO PRN (10:23)
[2018-11-16] MEDS ORDERED: ACETAMINOPHEN 325 MG TABLET (FP) PO PRN ×2 (10:23)
[2018-11-16] MEDS ORDERED: MAGNESIUM CITRATE 300 ML BOTTLE PO PRN (10:23)
[2018-11-16] MEDS ORDERED: hydrOXYzine PAMOATE 25 MG CAPSULE (FP) PO PRN (10:23)
[2018-11-16] MEDS ORDERED: MELATONIN 5 MG TABLETS PO PRN (10:23)
[2018-11-16] MEDS ORDERED: MAGNESIUM HYDROX 2400MG/30ML ORAL SUSPENSION 30 ML CUP PO PRN (10:23)
[2018-11-16] MEDS ORDERED: MAG HYDROX/AL HYDROX/SIMETH 30 ML UNIT-DOSE CUP PO PRN (10:23)
[2018-11-16] MEDS ORDERED: BISMUTH SUBSALICYLATE 524 MG/30 ML UD PO PRN (10:23)
[2018-11-16] MEDS ORDERED: cloNIDine HCL 0.1 MG TABLET PO PRN (10:24)
[2018-11-16] MEDS ORDERED: diazePAM 5 MG TABLET PO PRN (10:25)
[2018-11-16] MEDS ORDERED: METHADONE HCL 5 MG TABLET (FOR DETOX USE ONLY) PO ONE ×2 (13:30→22:00)
[2018-11-16] MEDS ORDERED: diazePAM 5 MG TABLET PO SCH (14:00)
[2018-11-16 17:34] VITALS: BP 118/65; PULSE 65; TEMP 97.6
[2018-11-16] MEDS ORDERED: THIAMINE HCL 100 MG TABLET (FP) PO SCH (22:00)
[2018-11-17] MEDS ORDERED: diazePAM 5 MG TABLET PO SCH (06:00)
[2018-11-17] MEDS ORDERED: PRENATAL VITAMINS W/ FOLIC ACID TABLET (FP) PO SCH (10:00)
[2018-11-17] MEDS ORDERED: METHADONE HCL 10 MG TABLET (FOR DETOX USE ONLY) PO ONE (10:00)
[2018-11-18] MEDS ORDERED: diazePAM 5 MG TABLET PO ONE (06:00)
[2018-11-18] MEDS ORDERED: METHADONE HCL 5 MG TABLET (FOR DETOX USE ONLY) PO ONE (10:00)
== END 2018-11-16 17:50 | disposition left against medical advice (07) | DRG 770 ==
LOC: YASAS 09:08 → Y3N 12:00
PROVIDERS: ADMIT Surgery; ATTEND Surgery
PROC: HZ2ZZZZ Detoxification Services for Substance Abuse Treatment (ICD-10-PCS; principal; 2018-11-16)
DX: F11.23 Opioid dependence with withdrawal (principal); F10.10 Alcohol abuse, uncomplicated; F17.210 Nicotine dependence, cigarettes, uncomplicated

== ENCOUNTER 2023-04-07 22:53 | Emergency (ER) | payer OTHER ==
[2023-04-07 23:01] VITALS: BMI 21.7
[2023-04-08] MEDS ORDERED: ACETAMINOPHEN 325 MG TABLET (FP) ONE (00:15)
[2023-04-08] MEDS ORDERED: LIDOCAINE 4% PATCH TP ONE (00:15)
[2023-04-08] MEDS ORDERED: METHOCARBAMOL 500 MG TABLET ONE (00:15)
[2023-04-08] MEDS: ACETAMINOPHEN 500 MG TABLET (FP) PO ONE (00:27)
[2023-04-08] MEDS: LIDOCAINE 4% PATCH TP ONE (00:27)
[2023-04-08] MEDS: METHOCARBAMOL 500 MG TABLET PO ONE (00:27)
[2023-04-08 01:22] VITALS: BP 130/78; PULSE 90; RESP 18; TEMP 98.1
[2023-04-08] MEDS ORDERED: LIDOCAINE PATCH REMOVAL MC SCH (22:00)
== END 2023-04-08 01:23 | disposition home or self-care (01) ==
LOC: JER 22:53
DX: M54.50 Low back pain, unspecified (principal); M79.661 Pain in right lower leg
CPT/HCPCS: 99283-25